=== PATIENT | female | born 1960 | race Caucasian/White ===

== ENCOUNTER 2017-02-01 10:37 | Emergency (ER) | payer OTHER ==
--- NOTE | 2017-02-01 11:00 | ERNOTE ---
Chest Pain/Cardiac HPI Date of Service: 02/01/17 Chief Complaint: Chest Pain Time Seen by Provider: 02/01/17 10:58 Source: patient Exam Limitations: no limitations Immunizations: IMMUNIZATION HX Immunizations Up to Date Yes Allergies/Adverse Reactions: Allergies promethazine HCl [From Phenergan] Allergy (Intermediate, Verified 02/01/17 10:46 ) Hives morphine Allergy (Mild, Verified 02/01/17 10:46) Itching topiramate [From Topamax] Adverse Reaction (Intermediate, Verified 02/01/17 10: 46) Other acetaminophen [From Darvocet-N 100] Adverse Reaction (Mild, Verified 02/01/17 10 :46) Nausea Penicillins Adverse Reaction (Mild, Verified 02/01/17 10:46) Nausea propoxyphene napsylate [From Darvocet-N 100] Adverse Reaction (Mild, Verified 10:46) Nausea Home Medications: HOME MEDICATIONS Albuterol Sulfate [Albuterol Sulfate 2.5 MG/0.5ML] 2.5 mg IH Q6H PRN 04/01/15 [ Last Taken Unknown] Albuterol Sulfate [Proair Respiclick] 90 mcg IH Q4H PRN 04/01/15 [Last Taken Unknown] Atorvastatin Calcium [Lipitor] 40 mg PO HS 04/01/15 [Last Taken Unknown] Duloxetine HCl [Cymbalta] 60 mg PO DAILY 04/01/15 [Last Taken Unknown] Estrogens, Conjugated [Premarin Cream] 1 appl VG 2XW 04/01/15 [Last Taken Unknown] Fluticasone Propionate [Flonase] 1 spray NS BID PRN 04/01/15 [Last Taken Unknown ] Montelukast Sodium [Singulair] 10 mg PO HS 04/01/15 [Last Taken Unknown] Valsartan [Diovan] 160 mg PO DAILY 04/01/15 [Last Taken Unknown] glipiZIDE [Glucotrol Xl] 5 mg PO DAILY 04/01/15 [Last Taken Unknown] metFORMIN HCL [Glucophage] 1,000 mg PO BID 04/01/15 [Last Taken Unknown] Narrative: PT ENTERS C/O RIGHT SIDED LOER LATERAL CHEST PAIN ACROSS TO HER BACK STARTING ABOUT 0900 WHILE AT HOME EATING. NO SOB , BUT SAYS SHE HAD SOME SWEATING. SHE SAYS SINCE THEN SH HAS ONLY HAD TWINGES BELOW HER RIGHT BREAST. SHE DIENIES HXOF CHEST PAIN OR CAD BUT DOES HAVE HTN AND HLD AND OBESITY. IN 05/2016 SHE WAS SEEN HERE WITH Wanda AND CT HERE WAS READ ACUTE CVA BUT SHE WAS SEEN N [place] , HAD AN MRI THAT DID NOT SHOW ANYTHING ABNORMAL. SHE HAS HAD PT SINCE THEN FOR C/O BACK PAINS. SHE ALSO TOLD THE NURSE SHE WAS THINKING SHE IS HAVING PVC'S. Timing: intermittent, gone now Review of Systems - Review of Systems Constitutional: Present: See HPI EYE: Present: no symptoms reported ENT: Present: no symptoms reported Respiratory: Present: no symptoms reported Cardiology: Present: See HPI, chest pain, palpitations Gastrointestinal/Abdominal: Present: no symptoms reported Genitourinary: Present: no symptoms reported Musculoskeletal: Present: no symptoms reported Skin: Present: no symptoms reported Neurological: Present: no symptoms reported Endocrine: Present: no symptoms reported Hematologic/Lymphatic: Present: no symptoms reported Psych: Present: no symptoms reported All Other Systems: All systems neg except as marked - Patient's Past Medical History Patient History - Medical: Anemia, Arthritis, Diabetes Type 2, Depression, Fibromyalgia, GERD, Migraines, Osteoarthritis, Renal Disease, UTI'S, Other Patient History - Cardiac/Respiratory: Asthma, Hypertension, Hyperlipidemia, Pneumonia, Other Patient History - Surgical Procedures: D & C, Hysterectomy, T & A, Other Patient History - Other: None - Social History Living Situations: home Abuse History: No History of abuse Psych History: Hx of Anxiety, Hx of Depression, Current tx/ever been on anti- depressants or anti-anxiety meds Does anyone smoke in the home?: No Smoking Status: Current every day smoker Alcohol Use: occasionally Drug Use: other - Immunizations Immunizations Up to Date: Yes Physical Exam - Physical Exam General Appearance: Present: wd/wn, alert, anxious - NERVOUS ACTING OBESE LADY , WARM AND DRY WITH VSS.( MILD HTN) , attentive for age Respiratory: Present: no respiratory distress, normal breath sounds, no accessory muscle use, chest nontender, lungs clear Cardiovascular/Chest: Present: regular rate, rhythm, no murmur, normal peripheral pulses Peripheral Pulses: N=norm/S=strong/W=weak/B=bound/A=absent: Radial (L): Normal, Femoral (R): Normal Gastrointestinal/Abdominal: Present: normal bowel sounds, nontender, soft Back Exam: Present: normal inspection Extremity Exam: Present: normal inspection, no edema Neurological Exam: Present: alert, oriented Skin Exam: Present: normal color ED Progress - Results and Orders Patient's Lab Results:: I have reviewed the patient's lab results. Results and Orders: ALL LABS NORMAL . NEG D DIMER AND TROP AT 1055. REPEAT 4 HR. TROPONIN ALSO = > 0.017. HER URINE DOES SHOW SMALL BLOOD. WITH NO BACTERIA OR WBC. - Vital Signs Patient's Vital Signs:: I have reviewed the patient's vital signs. Vital Signs: Vital Signs 02/01/17 10:43 Temperature 36.8 C Pulse Rate 82 Respiratory 18 Rate Blood Pressure 179/89 O2 Sat by Pulse 94 Oximetry - EKG EKG: NSR EKG read: Interp. by me - X-Ray X-Ray #1 X-Ray: chest Interpretation: Interp. by me - Progress/Reassessment Chief Complaint: Chest Pain Departure - Departure Clinical Impression: Chest pain at rest Disposition: Home Follow Up Needed Condition: Good Instructions: Chest Pain Observation Additional Instructions: FOLLOW UP WITH YOUR FAMILY DR TO SEE IF HE WOULD WANT YOU TO UNDERGO FURTHER EVALUATION . WE FOUNND NOTHING OUT OF THE ORDINARY TODAY EXCEPT THE SMALL AMOUNT OF BLOOD IN YOUR URINE THAT I HAD MENTIONED TO YOU. IF THESE SAME TYPE OF PAINS RECUR YOU MAY BENEFIT FORM A GALLBLADDER ULTRASOUND OR HIDA SCAN IF THE ULTRASOUND IS NORMAL. Referrals: Truong Perea MD [Primary Care Provider] -
[2017-02-01 11:10] LABS: Hematocrit 42.8 % (37.0-47.0); Mean Cell Volume 84.8 fl (78-100); Mean Corpuscular Hemoglobin 29.7 pg (27-31); Mean Platelet Volume 8.6 fl (6.0-9.5); Neutrophil # 4.7 K/mm3 (1.3-6.0); Neutrophil % 54.8 % (42-75.0); Platelet Count 317 K/mm3 (150-450); Red Blood Count 5.05 M/mm3 (4.2-5.4); Red Cell Distribution Width 13.3 % (11.5-14.0); White Blood Count 8.6 K/mm3 (4.0-10.5)
[2017-02-01 11:12] LABS: INR 0.96 INR (0.90-1.10); Partial Thrombolplastin Time 28.5 Seconds (24-32)
[2017-02-01] MEDS ORDERED: ASPIRIN 81 MG TAB.CHEW PO ONE (11:15)
[2017-02-01 11:18] LABS: ALT 26 U/L (19-67); AST 11 U/L (0-48); Albumin * 3.8 gm/dl (3.4-5.0); Alkaline Phosphatase * 74 U/L (50-170); Anion Gap 13.1 mmol/L (6.8-13.8); BUN/Creatinine Ratio 15.8 (9.0-21.6); Bilirubin, Total 0.5 mg/dL (0.0-1.1); Blood Urea Nitrogen 9 mg/dL (3-23); Ca. Corrected For Albumin 9.7 mg/dL (8.4-10.2); Calcium * 9.9 mg/dL (7.9-10.9); Carbon Dioxide 25.1 mmol/L (24-32.6); Chloride 106 mmol/L (97-106); Glucose * 141 mg/dL (70-110); Potassium 4.2 mmol/L (3.4-4.6); Sodium 140 mmol/L (132-142); Total Protein 7.2 gm/dL (6.2-8.2); Troponin I Less than 0.017 ng/ml (0.00-0.10)
[2017-02-01 11:19] LABS: Urine Bilirubin Negative (NEGATIVE); Urine Blood 25 /ul (NEGATIVE); Urine Ketone Negative (NEGATIVE); Urine Nitrite Negative (NEGATIVE); Urine Protein Negative (NEGATIVE); Urine Specific Gravity <=1.005 SP.GR. (1.005-1.010); Urine Urobilinogen Normal (NORMAL)
[2017-02-01] MEDS ORDERED: ASPIRIN 81 MG TAB.CHEW ONE (11:21)
--- OUTSIDE RECORDS SUMMARY | 2017-02-01 11:24 | XMS REPORT | Continuity of Care Document ---
:1960 Author Organization [facility] ([facility]) Address [address] [place] [address] Phone [phone] Care Team Providers Name Role Phone Truong Perea Primary Care Provider [phone] Source Comments This disclosure is being made pursuant to the Care Everywhere program, applicable federal and state laws, and may not contain all informaitonavailable regarding this patient.[facility] ([facility]) Active Allergies and Adverse Reactions Allergen Noted Date Severity Reactions Comments Morphine 06/14/2013 Pruritus Promethazine Urticaria (Hives) Current Medications Prescription Sig. Disp. Refills Start Date End Date Status valsartan (DIOVAN) Take 1 Tab by mouth 30 Tab 11 01/09/2014 Active 160 mg tablet daily. Indications: HYPERTENSION metFORMIN 500 mg Take 1,000 mg by Active tablet mouth 2 times daily. atorvastatin 20 mg Take 20 mg by mouth Active tablet every evening. montelukast 10 mg Take 1 Tab by mouth 30 Tab 11 07/19/2014 Active tablet daily. Indications: ALLERGIC RHINITIS, ASTHMA PREVENTION albuterol 90 Use 2 Puffs by 1 Inhaler 11 07/19/2014 Active mcg/Actuation inhalation every 6 inhaler hours as needed. Indications: ACUTE ASTHMA ATTACK glipiZIDE PO Take 10 mg by mouth. Active SERTraline 50 mg Take 50 mg by mouth Active tablet daily. estradiol (ESTRACE) Use pea size amount 42.5 g 11 06/17/2016 Active 0.01 % vaginal on finger cream intravaginally twice a week celecoxib 200 mg 04/28/2016 Active capsule DULoxetine 30 mg XR TAKE ONE CAPSULE BY 0 06/18/2016 Active capsule MOUTH DAILY FOR 7 DAYS THEN INCREASE TO TWO CAPSULES DAILY solifenacin Take 1 tablet (5 mg 90 tablet 3 08/12/2016 Active (VESICARE) 5 mg total) by mouth tablet daily. oxybutynin 10 mg CR Take 1 tablet (10 mg 90 tablet 4 08/17/2016 Active tablet total) by mouth daily. Active Problems Problem Noted Date Vertigo 05/24/2016 PPD positive, treated 10/30/2013 Lung nodule 10/30/2013 Overview: Incidental. No change [id number] HTN (hypertension) 10/30/2013 Diabetes mellitus 10/30/2013 Smoker 10/30/2013 Allergic rhinitis, seasonal 10/30/2013 Mixed stress and urge urinary incontinence 06/14/2013 Urinary frequency 06/14/2013 Vaginal atrophy 06/14/2013 Prolapse of vaginal gaxiola 06/14/2013 Chronic constipation 06/14/2013 Fecal incontinence 06/14/2013 Microscopic hematuria 06/14/2013 Most Recent Encounters Date Type Specialty Providers Description 01/19/2017 Office Visit Gynecology Gisele Cruz, Subj: Appointment MD Scheduled 01/06/2017 Office Visit Obg Urogynecology John Putnam MD Subj: Upcoming Appt Reminder 12/24/2016 Office Visit Obg Urogynecology John Putnam MD Subj: Appointment Rescheduled 12/23/2016 Lab Requisition Pathology [facility], [facility] Dx: Neoplasm of uncertain behavior of skin 12/17/2016 Office Visit Obg Urogynecology John Putnam MD Chief Comp: Patient Reported Reason For Visit Immunizations Name Dates Previously Given Next Due Influenza, unspecified 06/20/2014 Social History Tobacco Use Types Packs/Day Years Used Date Current Every Day Smoker Cigarettes 1 30 Smokeless Tobacco: Never Used Tobacco Cessation:Counseling Given: Yes Comments:10cig/sday Alcohol Use Drinks/Week oz/Week Comments Yes 1 Glasses of wine Last Filed Vital Signs Vital Sign Reading Time Taken Blood Pressure 122/75 06/30/2016 11:20 AM CDT Pulse 72 06/30/2016 11:20 AM CDT Temperature 37.4 C (99.3 F) 05/24/2016 1:44 AM CDT Respiratory Rate 20 05/24/2016 1:44 AM CDT Height 1.727 m (5' 7.99") 10/14/2015 3:14 PM [employer] Weight 125.2 kg (276 lb 0.3 oz) 06/30/2016 11:20 AM CDT Body Mass Index 41.98 06/30/2016 11:20 AM CDT Oxygen Saturation 92% 05/24/2016 7:35 AM CDT Plan of Care Date Type Specialty Providers Description 03/04/2017 Appointment Obg Urogynecology John Putnam MD Subj: Appointment [address] [place] [address] [phone] (Fax) 04/27/2017 Appointment Gynecology Gisele Cruz MD Subj: Appointment [address] [place] [address] [phone] (Fax) Health Maintenance Due Date Last Done Comments HCV Screening 1960 Hepatitis B Vaccine (1 of 3 - Primary Series) 1960 Tdap Vaccine 1973 DIABETIC: Cholesterol 1980 Diabetic: Hdl 1980 DIABETIC: Hemoglobin A1C 1980 Diabetic: Ldl 1980 DIABETIC: Microalbumin 1980 DIABETIC: Triglycerides 1980 MMR Vaccine 1980 Td Vaccine 1980 Pneumococcal Vaccine (1 of 1 - PPSV23) 1981 Cervical Cancer Screening 1992 Mammogram 2002 Colonoscopy 05/19/2012 DIABETIC: Foot Exam 10/30/2013 DIABETIC: Retinal Eye Exam 10/30/2013 Influenza Vaccine: Seasonal (Season Ended) 2017 06/20/2014 Results from Last 3 Months DERMATOPATHOLOGY EXAM (12/22/2016 3:56 PM) Component Value Range Case Report Surgical Pathology Case: [id number] Authorizing Provider:[facility] Collected: 12/22/2016 03:56 PM Pathologist: Josi Eagle MD Received:12/23/2016 03:56 PM Specimen:Skin, other, specify, L cheek Diagnosis Skin, left cheek, shave biopsy: Verrucous keratosis with atypia, inflamed, consistent with verruca vulgaris. I have personally reviewed this case and edited the report as necessary. Clinical Information Tissue source/site: [id number] cheek. Pertinent clinical history and findings: Thickened papule 5 mm. Clinical differential diagnosis: BCC versus SCC versus seborrheic keratosis. Gross Description A.Received in formalin, in a container labeled Roselyn Flores, date of , and "L cheek", is a 0.4 x 0.4 x 0.3 cm ledesma-white shave biopsy.The specimen is inked, bisected and submitted entirely in A1. AJF/rls Microscopic Description Sections show a skin shave demonstrating a hyperkeratotic verruciform epidermal proliferation generally to a uniform depth featuring exophytic skin projections topped by parakeratotic tiers, alternati ng with valleys of hypergranulosis.Inflammation and lower epidermal atypia are present. Performed by:Alphonso Iglesias DO, R1/rls Specimen Skin - Skin, other, specify
[2017-02-01 11:26] LABS: Urine Appearance Clear; Urine Bacteria None Seen; Urine Color Yellow; Urine WBC None Seen /hpf (0-5)
[2017-02-01 15:14] VITALS: BP 148/74
== END 2017-02-01 15:54 | disposition home or self-care (01) ==
LOC: ER 10:37
DX: R07.89 Other chest pain (principal); Z72.0 Tobacco use; M19.90 Unspecified osteoarthritis, unspecified site; E11.9 Type 2 diabetes mellitus without complications; F32.89 Other specified depressive episodes; M79.7 Fibromyalgia; K21.9 Gastro-esophageal reflux disease without esophagitis; I10 Essential (primary) hypertension; E78.5 Hyperlipidemia, unspecified; N28.9 Disorder of kidney and ureter, unspecified

== ENCOUNTER 2019-04-09 20:23 | Inpatient (IN) ==
[2019-04-09] MEDS ORDERED: KETOROLAC TROMETHAMINE 30 MG/ML VIAL IV ONE (20:58)
[2019-04-09] MEDS ORDERED: ONDANSETRON HCL/PF 2 MG/ML VIAL IV ONE (20:58)
[2019-04-09] MEDS ORDERED: NORMAL SALINE 1,000 ML IV PRN (20:58)
--- NOTE | 2019-04-09 21:03 | ERNOTE ---
Medical Problem HPI - Narrative Date of Service: 04/09/19 - General Chief Complaint: Fever Time Seen by Provider: 04/09/19 20:34 Source: patient, old records - Immun/Allergies/Home Medications Immunizations: IMMUNIZATION HX Immunizations Up to Date Yes History of Influenza Vaccine Yes Hx Pneumococcal Vaccination No Allergies/Adverse Reactions: Allergies cefdinir Allergy (Intermediate, Verified 04/09/19 20:29) RASH promethazine HCl [From Phenergan] Allergy (Intermediate, Verified 04/09/19 20:29) Hives morphine Allergy (Mild, Verified 04/09/19 20:29) Itching topiramate [From Topamax] Adverse Reaction (Intermediate, Verified 04/09/19 20:29) anxiety Penicillins Adverse Reaction (Mild, Verified 04/09/19 20:29) Nausea propoxyphene napsylate [From Darvocet-N 100] Adverse Reaction (Mild, Verified 04/09/19 20:29) Nausea amitriptyline Adverse Reaction (Unknown, Verified 04/09/19 20:29) tachycardia nortriptyline Adverse Reaction (Unknown, Verified 04/09/19 20:29) tachycardia Home Medications: HOME MEDICATIONS albuterol sulfate 2.5 mg/3 mL (0.083 %) solution for nebulization 2.5 mg IH QID PRN 04/07/18 [Last Taken Unknown] ipratropium-albuterol 0.5 mg-3 mg(2.5 mg base)/3 mL nebulization soln 3 ml IH BID PRN ml 04/07/18 [Last Taken Unknown] meclizine 25 mg tablet 25 mg PO DAILY PRN 04/07/18 [Last Taken Unknown] estradiol 0.01% (0.1 mg/gram) vaginal cream 1 g VG ONCE 09/05/18 [Last Taken ] melatonin 10 mg tablet 10 mg PO HS PRN 09/05/18 [Last Taken Unknown] methenamine 120 mg-sod phos 40.8 mg-methylene blue 10 mg-hyosc capsule 1 cap PO ONCE cap 11/29/18 [Last Taken 12/15/18] Blood Sugar Diagnostic [FreeStyle Lite Strips] 0 ea .ROUTE .MEDSUPPLY 12/16/18 [Last Taken 12/15/18] Blood-Glucose Meter [Contour Link] 0 ea .ROUTE .MEDSUPPLY 12/16/18 [Last Taken 12/15/18] albuterol sulfate 90 mcg/actuation breath activated powder inhaler 90 mcg IH Q4H PRN #3 ea 01/02/19 [Last Taken Unknown] amlodipine 5 mg tablet 5 mg PO DAILY #90 tab 01/02/19 [Last Taken Unknown] atorvastatin 40 mg tablet 40 mg PO HS #90 tab 01/02/19 [Last Taken Unknown] duloxetine 60 mg capsule,delayed release 60 mg PO DAILY #90 cap 01/02/19 [Last Taken Unknown] fenofibrate 160 mg tablet 160 mg PO DAILY #90 tab 01/02/19 [Last Taken Unknown] metformin ER 1,000 mg tablet,extended release 24hr 1,000 mg PO DAILY #90 tab 01/02/19 [Last Taken Unknown] mirabegron ER 50 mg tablet,extended release 24 hr 50 mg PO DAILY #90 tab 01/02/19 [Last Taken Unknown] montelukast 10 mg tablet 10 mg PO HS #90 tab 01/02/19 [Last Taken Unknown] sitagliptin 100 mg tablet 100 mg PO DAILY #90 tab 01/02/19 [Last Taken Unknown] valsartan 80 mg tablet 80 mg PO DAILY #90 tab 01/02/19 [Last Taken Unknown] ropinirole 1 mg tablet 1 mg PO HS #30 tab 01/26/19 [Last Taken Unknown] insulin syringes (disposable) 1 mL See Dose Instructions .ROUTE .MEDSUPPLY #100 ea 03/07/19 [Last Taken Unknown] Nitrofurantoin Macrocrystal [Nitrofurantoin] 100 mg PO BID #14 cap 04/08/19 [Last Taken Unknown] Ondansetron [Zofran Odt] 8 mg PO Q8H PRN #12 tab 04/08/19 [Last Taken Unknown] Fluticasone Propionate [Flonase Allergy Relief] 2 spray INTRANASAL DAILY PRN 04/09/19 [Last Taken Unknown] Insulin Glargine,Hum.rec.anlog [Lantus U-100 Insulin] 14 unit SUBCUT HS 04/09/19 [Last Taken Unknown] - History of Present History Narrative: This is a 58-year-old female who comes to the emergency department by ambulance for the second time in 2 days. 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 The patient suffered a needlestick on March 10. The source patient was hepatitis C+. They were not positive for hepatitis B or HIV. Patient's routine titers were done and she was found to not be hep B immune. She has been placed back on the full regime of the hepatitis B treatment. The patient has had intermittent fevers for the last several weeks. They have gotten up to 104. The patient was put on antibiotics for sinus infection a few days ago. She had an allergic reaction and was changed over to Levaquin. She has been on that since. The patient reports that she has been having clear nasal discharge, headache, myalgias. She denies having any urinary symptoms. She has not had much bowel movement in the last couple of days. Her urine is been very dark. The patient has had a bit more coughing in the last 48 hours. She reports being slightly short of breath. She denies chest pain but says that her ribs hurt inferior costal margin especially on the right. Patient has no neck stiffness. She does have general aching throughout her neck and head. She has no decreased hearing. No sore throat. She says that now she has a little bit of sinus tenderness especially on the right maxillary. The patient tried to get a nap today when she woke up she was having Reiger's. Temperature was over 103. This is despite being on the Levaquin. He has had no bump in her liver enzymes that she is aware of. Review of Systems - Review of Systems Constitutional: Present: recent illness, fever, chills, weakness, fatigue, malaise EYE: Present: no symptoms reported ENT: Present: other - Sinus pressure, clear rhinorrhea Respiratory: Present: shortness of breath, cough. Absent: wheezing Cardiology: Present: no symptoms reported. Absent: chest pain, palpitations, syncope Gastrointestinal/Abdominal: Present: nausea, constipation, eating less. Absent: vomiting, diarrhea, abdominal pain, drinking less Genitourinary: Present: no symptoms reported, other - Urine was slightly dark today Musculoskeletal: Present: other - Patient has diffuse pain throughout. Does have fibromyalgia. All muscles and joints are hurting. Skin: Present: no symptoms reported Neurological: Present: headache Endocrine: Present: no symptoms reported Hematologic/Lymphatic: Present: no symptoms reported Psych: Present: no symptoms reported All Other Systems: All systems neg except as marked Medical History (Updated 04/09/19 @ 22:05 by Hai Sultana MD) Constipation by delayed colonic transit (Acute) Diabetes mellitus type 2 in obese (Chronic) Type II diabetes mellitus (Chronic) Knee pain, chronic (Chronic) Fistula, vagina (Chronic) Fistula (Acute) Morbid obesity (Chronic) Urinary bladder incontinence (Chronic) Degenerative joint disease (DJD) of lumbar spine (Chronic) Facet arthritis of lumbar region (Chronic) Anemia Asthma Onset Date: ~05/03/07 reactive Back pain Chickenpox Current tobacco use 1/2 ppd Diabetes mellitus Onset Date: ~2006 Fibromyalgia Onset Date: ~11/1997 GERD (gastroesophageal reflux disease) Hyperlipidemia Onset Date: ~2004 Hypertension Onset Date: ~2007 Lives with spouse Lung nodule Onset Date: ~10/09/13 Right lower lobe Migraine Obesity Osteoarthritis PPD positive Onset Date: ~1990 Pneumonia Onset Date: ~08/1997 Seldom use of alcohol Sinusitis Sleep apnea p/t reports she had surgery and does not use CPAP anymore Wears glasses Mononucleosis Onset Date: ~1968 hospitalized Surgical History: Surgical History (Updated 12/16/18 @ 10:55 by Jovita Ni RN) History of tonsillectomy and adenoidectomy (Resolved) Onset Date: ~12/20/03 Dr. Yuen H/O: hysterectomy (Resolved) Onset Date: ~05/16/07 Dr. Canales-menometrorrhagia, endometrial hyperplasia History of laparoscopic cholecystectomy Onset Date: 04/26/18 [place] Erosion of vaginal mesh Onset Date: ~06/25/[address] Canales History of colonoscopy Onset Date: ~04/02/15 w/biopsy. Dr. Regan hyperplastic polyps x3, serrated adenoma. Recheck 5 years History of cystoscopy Onset Date: ~05/16/07 History of dilatation and curettage Onset Date: ~[address] Sheppard, 04/21/2006 Dr. Canales History of esophagogastroduodenoscopy (EGD) Onset Date: 04/26/18 [place]-clotest positive. Mild to moderate reflux esophagitis. History of foot surgery Onset Date: ~07/19/15 Bilateral, Spurs, ganglion cysts, [place] History of nasal septoplasty Onset Date: ~12/20/03 Dr. Yuen History of suburethral sling procedure Onset Date: ~05/16/07 Anterior/posterior repair w/avaulta mesh, Dr. Canales History of uvulopalatopharyngoplasty Onset Date: ~12/20/03 Dr. Yuen Hx of BSO (bilateral salpingo-oophorectomy) Onset Date: ~05/16/07 Dr. Canales-menometrorrhagia, endometrial hyperplasia Family History: Family History (Updated 12/16/18 @ 11:00 by Jovita Ni, LAINA) Father Diabetes Myocardial infarction CVA (cerebral vascular accident) Mother , age 61-breast ca (dx age 50's) Hyperlipemia Breast cancer, Onset Age: 50 Colon polyps Sister Diabetes Hypertension Sister , age 45-overdose Depression severe Brother Hypertension Sister Diabetes Hypertension CVA (cerebral vascular accident) Daughter Breast cancer Social History: (Last Reviewed 04/09/19 @ 20:30 by Yesy Robison RN) Social History: adopted: No foster care: No alf: No Marital status: household members: spouse number of children: 2 current occupational status: employed 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 [employer] Highest education level completed: Associate degree: occupat Service: No Tobacco: Smoking Status: Current every day smoker tobacco type: cigarettes Smoking cigarettes per day: 10.0 Smoking packs per day: 0.5 Years smoked: 43 Smoking pack-years: 21.50 Alcohol: alcohol intake: current alcohol intake frequency: holiday/special occasion Substance Use: substance use type: does not use Dietary Habits: caffeine: Yes Type: carbonated beverages, coffee, tea Personal Safety: victim of physical abuse: No victim of emotional abuse: No Physical Exam - Physical Exam General Appearance: Present: wd/wn, alert, no apparent distress Head Exam: Present: normal inspection, no evidence of injury Eye Exam: Normal inspection: bilateral, PERRL: bilateral, EOMI: bilateral Ears, Nose, Throat: Present: other - Patient has normal tympanic membranes. Normal oropharynx. Membranes are slightly dry. No sinus tenderness Neck: Present: normal inspection, nontender, other - No nuchal rigidity or adenopathy Respiratory: Present: no respiratory distress, other - Patient has some very mild rhonchi at the left base Cardiovascular/Chest: Present: regular rate, rhythm, no murmur Gastrointestinal/Abdominal: Present: normal bowel sounds, nontender, nondistended, soft Back Exam: Present: normal inspection, normal range of motion, no CVA tenderness, no vertebral tenderness Extremity Exam: Present: normal inspection, non-tender, normal range of motion Neurological Exam: Present: alert, oriented, normal mood/affect, no motor/sensory deficits Skin Exam: Present: normal color, warm/dry Lymphatic Exam: Present: no adenopathy Progress - Results and Orders Patient's Lab Results:: I have reviewed the patient's lab results. - Vital Signs Patient's Vital Signs:: I have reviewed the patient's vital signs. Vital Signs: Vital Signs 04/09/19 20:26 Temperature 39.6 C H Pulse Rate 101 H Respiratory Rate 20 Blood Pressure 167/71 H O2 Sat by Pulse Oximetry 93 - X-Ray X-Ray #1 X-Ray: chest Interpretation: Interp. by me X-ray Comments: ? Right middle lobe infiltrate. Essentially unchanged from yesterday - Progress/Reassessment Chief Complaint: Fever Progress:: Improved Plan - Plan Plan: Patient has persistent fever despite being on Levaquin. Hypoxic. Infiltrate. White count is actually down. Meets criteria for sepsis. I am going to talk with the hospitalist doctor about which antibiotics to prescribe. She is been in need to stay in the hospital for a day or 2. I spoke with Dr. Jono Rios. She agrees with vancomycin and Zosyn. Expanding the coverage when the patient has not responded to the Levaquin makes sense CRITICAL CARE TIME: 35 minutes Departure Clinical Impression: Hypoxia Sepsis Qualifiers: Sepsis type: sepsis due to unspecified organism Qualified Code(s): A41.9 - Sepsis, unspecified organism Pneumonia Qualifiers: Pneumonia type: due to unspecified organism Laterality: right Lung location: middle lobe of lung Qualified Code(s): J18.1 - Lobar pneumonia, unspecified organism - Departure Disposition: Still a patient Condition: Stable
[2019-04-09 21:15] LABS: Hematocrit 35.1 % (37.0-47.0); Hemoglobin 11.9 gm/dL (12.5-16.0); Mean Corpuscular Hemoglobin 29.8 pg (27-31); Mean Corpuscular Hgb Conc 33.9 g/dl (32-36); Mean Platelet Volume 8.4 fl (8-12.5); Neutrophil # 1.8 K/mm3 (1.3-6.0); Neutrophil % 83.4 % (42-75.0); Platelet Count 216 K/mm3 (150-450); Red Blood Count 3.99 M/mm3 (4.2-5.4); Red Cell Distribution Width 12.8 % (11.5-14.0); White Blood Count 2.2 K/mm3 (4.0-10.5)
[2019-04-09 21:30] LABS: Albumin * 2.8 gm/dl (3.4-5.0); Anion Gap 13.1 mmol/L (6.8-13.8); BUN/Creatinine Ratio 10.8 (9.0-21.6); Bilirubin, Total 0.5 mg/dL (0.0-1.1); Ca. Corrected For Albumin 10.2 mg/dL (8.4-10.2); Calcium * 9.6 mg/dL (7.9-10.9); Carbon Dioxide 26.2 mmol/L (24-32.6); Potassium 3.3 mmol/L (3.4-4.6); Total Protein 6.1 gm/dL (6.2-8.2)
[2019-04-09] MEDS ORDERED: LEVOFLOXACIN 500 MG TABLET PO ONE (22:10)
[2019-04-09] MEDS ORDERED: VANCOMYCIN HCL 1 GM in DEXTROSE 5 % IN WATER 250 ML IV ONE ×2 (22:10)
[2019-04-09 22:12] LABS: Urine Bilirubin Negative (NEGATIVE); Urine Blood 50 /ul (NEGATIVE); Urine Ketone Negative (NEGATIVE); Urine Nitrite Negative (NEGATIVE); Urine Protein 100 mg/dL (NEGATIVE); Urine Specific Gravity >=1.030 SP.GR. (1.005-1.010); Urine pH 5.5 pH (5.0-7.0)
[2019-04-09 22:25] LABS: Urine Appearance Clear (CLEAR); Urine Bacteria None Seen; Urine Color Yellow; Urine Hyaline Cast TRACE /LPF; Urine RBC 0-5 /hpf (0-5); Urine WBC None Seen /hpf (0-5)
[2019-04-10] MEDS: PIPERACILLIN SODIUM/TAZOBACTAM 3.375 GM in DEXTROSE 5 % IN WATER 100 ML IV SCH ×8 (00:58→22:45)
[2019-04-10] MEDS: IBUPROFEN 600 MG TABLET PO PRN ×3 (00:58→18:56)
[2019-04-10] MEDS ORDERED: FLUTICASONE PROPIONATE 120 SPRAY INHALER NS PRN (09:10)
[2019-04-10] MEDS ORDERED: ALBUTEROL SULFATE/IPRATROPIUM 3 ML NEBU IH PRN (09:10)
[2019-04-10] MEDS ORDERED: MELATONIN 3,000 MCG TABLET PO PRN (09:10)
[2019-04-10] MEDS ORDERED: ALBUTEROL SULFATE 2.5 MG/0.5 ML VIAL.NEB IH PRN ×2 (09:10)
[2019-04-10] MEDS ORDERED: MECLIZINE HCL 25 MG TABLET PO PRN (09:10)
[2019-04-10] MEDS ORDERED: ONDANSETRON 8 MG TAB.RAPDIS PO PRN (09:10)
[2019-04-10] MEDS ORDERED: ACETAMINOPHEN WITH CODEINE 1 EACH TABLET PO PRN (09:18)
[2019-04-10] MEDS: LOSARTAN POTASSIUM 50 MG TABLET PO SCH (10:23)
[2019-04-10] MEDS: amLODIPine BESYLATE 5 MG TABLET PO SCH (10:23)
[2019-04-10] MEDS: ENOXAPARIN SODIUM 40 MG/0.4 ML SYRG SC SCH (10:24)
--- NOTE | 2019-04-10 18:36 | HP ---
Chief Complaint - Chief Complaint Date of Service: 04/10/19 Time of Service: 08:30 Chief Complaint: fever, chills, cough, dysuria, weakness, diaphoresis History of Present Illness: Eboni Flores was seen in my office last with chief complaints of malaise and had episodes of fever and chills to 104 degrees. The nidus of her infection was not clear at the time. She came to the emergency room on Wednesday was evaluated and the nidus of infection was still elusive. She was started on oral antibiotics and sent home. Her condition worsened and she was coming very weak and lightheaded. She represented to the emergency room and was subsequently admitted for pneumonia and sepsis. Her blood cultures have come back growing a gram-negative bacillus. The ID will be completed probably tomorrow. She is on IV Zosyn at this time. She did receive Rocephin in the emergency room. She has been febrile. She has a leukocytosis with a left shift in the differential. The chest x-ray is interpreted by the radiologist stating there is a left lower lobe pneumonia however I cannot see it on my reading of it. Her chest is quiet although she reports having audible wheezes and a minimally productive cough. She is having a lot of pain in her back. She has been aggressively rehydrated but is still not feeling much better today. She is a diabetic but her blood sugars have been in the lower 100s for the most part. Medical History (Updated 04/10/19 @ 00:01 by ) Constipation by delayed colonic transit (Acute) Diabetes mellitus type 2 in obese (Chronic) Type II diabetes mellitus (Chronic) Knee pain, chronic (Chronic) Fistula, vagina (Chronic) Fistula (Acute) Morbid obesity (Chronic) Urinary bladder incontinence (Chronic) Degenerative joint disease (DJD) of lumbar spine (Chronic) Facet arthritis of lumbar region (Chronic) Anemia Asthma Onset Date: ~05/03/07 reactive Back pain Chickenpox Current tobacco use 1/2 ppd Diabetes mellitus Onset Date: ~2006 Fibromyalgia Onset Date: ~11/1997 GERD (gastroesophageal reflux disease) Hyperlipidemia Onset Date: ~2004 Hypertension Onset Date: ~2007 Lives with spouse Lung nodule Onset Date: ~10/09/13 Right lower lobe Migraine Obesity Osteoarthritis PPD positive Onset Date: ~1990 Pneumonia Onset Date: ~08/1997 Seldom use of alcohol Sinusitis Sleep apnea p/t reports she had surgery and does not use CPAP anymore Wears glasses Mononucleosis Onset Date: ~1968 hospitalized Surgical History: Surgical History (Updated 12/16/18 @ 10:55 by Jovita Ni, RN) History of tonsillectomy and adenoidectomy (Resolved) Onset Date: ~12/20/03 Dr. Yuen H/O: hysterectomy (Resolved) Onset Date: ~05/16/07 Dr. Canales-menometrorrhagia, endometrial hyperplasia History of laparoscopic cholecystectomy Onset Date: 04/26/18 [place] Erosion of vaginal mesh Onset Date: ~06/25/[address] Canales History of colonoscopy Onset Date: ~04/02/15 w/biopsy. Dr. Regan hyperplastic polyps x3, serrated adenoma. Recheck 5 years History of cystoscopy Onset Date: ~05/16/07 History of dilatation and curettage Onset Date: ~[address] hSeppard, 04/21/2006 Dr. Canales History of esophagogastroduodenoscopy (EGD) Onset Date: 04/26/18 [place]-clotest positive. Mild to moderate reflux esophagitis. History of foot surgery Onset Date: ~07/19/15 Bilateral, Spurs, ganglion cysts, [place] History of nasal septoplasty Onset Date: ~12/20/03 Dr. Yuen History of suburethral sling procedure Onset Date: ~05/16/07 Anterior/posterior repair w/avaulta mesh, Dr. Canales History of uvulopalatopharyngoplasty Onset Date: ~12/20/03 Dr. Yuen Hx of BSO (bilateral salpingo-oophorectomy) Onset Date: ~05/16/07 Dr. Canales-menometrorrhagia, endometrial hyperplasia Family History: Family History (Updated 12/16/18 @ 11:00 by Jovita Ni, LAINA) Father Diabetes Myocardial infarction CVA (cerebral vascular accident) Mother , age 61-breast ca (dx age 50's) Hyperlipemia Breast cancer, Onset Age: 50 Colon polyps Sister Diabetes Hypertension Sister , age 45-overdose Depression severe Brother Hypertension Sister Diabetes Hypertension CVA (cerebral vascular accident) Daughter Breast cancer Social History: (Last Updated 04/09/19 @ 23:57 by Mel Sellers RN) Social History: adopted: No foster care: No prison: No Marital status: household members: spouse number of children: 2 current occupational status: employed 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 [employer] current occupational exposures/hazards: Yes current occupational exposures/hazards comment: 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 [employer]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 Highest education level completed: Associate degree: occupat Service: No Tobacco: Smoking Status: Current every day smoker tobacco type: cigarettes Smoking cigarettes per day: 10.0 Smoking packs per day: 0.5 Years smoked: 43 Smoking pack-years: 21.50 Alcohol: alcohol intake: current alcohol intake frequency: holiday/special occasion Substance Use: substance use type: does not use Dietary Habits: caffeine: Yes Type: carbonated beverages, coffee, tea Personal Safety: victim of physical abuse: No victim of emotional abuse: No Review Of Systems (GEN) - Review of Systems Generalized/Overall Review: Present: Weakness, Chills, Fever, Malaise, Diaphoresis, Fatigue EENTM: Present: No Symptoms Reported Respiratory: Present: Cough, Wheezing Cardiac: Present: No Symptoms Reported Abdominal: Present: No Symptoms Reported Genitourinary: Present: Dysuria Musculoskeletal: Present: No Symptoms Reported Neurological: Present: Weakness Skin: Present: Other - Diaphoretic and pale Endocrine: Present: No Symptoms Reported Immunizations: IMMUNIZATION HX Immunizations Up to Date Yes History of Influenza Vaccine Yes Hx Pneumococcal Vaccination No Allergies/Adverse Reactions: Allergies Allergy/AdvReac Type Severity Reaction Status Date / Time cefdinir Allergy Intermediate RASH Verified 04/09/19 20:29 promethazine HCl Allergy Intermediate Hives Verified 04/09/19 20:29 [From Phenergan] morphine Allergy Mild Itching Verified 04/09/19 20:29 topiramate [From Topamax] AdvReac Intermediate anxiety Verified 04/09/19 20:29 Penicillins AdvReac Mild Nausea Verified 04/09/19 20:29 propoxyphene napsylate AdvReac Mild Nausea Verified 04/09/19 20:29 [From Darvocet-N 100] amitriptyline AdvReac Unknown tachycardia Verified 04/09/19 20:29 nortriptyline AdvReac Unknown tachycardia Verified 04/09/19 20:29 Home Medications: HOME MEDICATIONS albuterol sulfate 2.5 mg/3 mL (0.083 %) solution for nebulization 2.5 mg IH QID PRN 04/07/18 [Last Taken Unknown] ipratropium-albuterol 0.5 mg-3 mg(2.5 mg base)/3 mL nebulization soln 3 ml IH BID PRN ml 04/07/18 [Last Taken Unknown] meclizine 25 mg tablet 25 mg PO DAILY PRN 04/07/18 [Last Taken Unknown] estradiol 0.01% (0.1 mg/gram) vaginal cream 1 g VG ONCE 09/05/18 [Last Taken 12/11/18] melatonin 10 mg tablet 10 mg PO HS PRN 09/05/18 [Last Taken Unknown] Blood Sugar Diagnostic [FreeStyle Lite Strips] 0 ea .ROUTE .MEDSUPPLY 12/16/18 [Last Taken 12/15/18] Blood-Glucose Meter [Contour Link] 0 ea .ROUTE .MEDSUPPLY 12/16/18 [Last Taken 12/15/18] albuterol sulfate 90 mcg/actuation breath activated powder inhaler 90 mcg IH Q4H PRN #3 ea 01/02/19 [Last Taken Unknown] amlodipine 5 mg tablet 5 mg PO DAILY #90 tab 01/02/19 [Last Taken Unknown] atorvastatin 40 mg tablet 40 mg PO HS #90 tab 01/02/19 [Last Taken Unknown] duloxetine 60 mg capsule,delayed release 60 mg PO DAILY #90 cap 01/02/19 [Last Taken Unknown] fenofibrate 160 mg tablet 160 mg PO DAILY #90 tab 01/02/19 [Last Taken Unknown] metformin ER 1,000 mg tablet,extended release 24hr 1,000 mg PO DAILY #90 tab 01/02/19 [Last Taken Unknown] mirabegron ER 50 mg tablet,extended release 24 hr 50 mg PO DAILY #90 tab 12/19 02/05 [Last Taken Unknown] montelukast 10 mg tablet 10 mg PO HS #90 tab 01/02/19 [Last Taken Unknown] sitagliptin 100 mg tablet 100 mg PO DAILY #90 tab 01/02/19 [Last Taken Unknown] valsartan 80 mg tablet 80 mg PO DAILY #90 tab 01/02/19 [Last Taken Unknown] ropinirole 1 mg tablet 1 mg PO HS #30 tab 01/26/19 [Last Taken Unknown] insulin syringes (disposable) 1 mL See Dose Instructions .ROUTE .MEDSUPPLY #100 ea 03/07/19 [Last Taken Unknown] Nitrofurantoin Macrocrystal [Nitrofurantoin] 100 mg PO BID #14 cap 04/08/19 [Last Taken Unknown] Ondansetron [Zofran Odt] 8 mg PO Q8H PRN #12 tab 04/08/19 [Last Taken Unknown] Fluticasone Propionate [Flonase Allergy Relief] 2 spray INTRANASAL DAILY PRN 04/09/19 [Last Taken Unknown] Insulin Glargine,Hum.rec.anlog [Lantus U-100 Insulin] 14 unit SUBCUT HS 04/09/19 [Last Taken Unknown] Exam - Exam Vital Signs: Vital Signs - Last Taken Temp 36.9 C 04/10/19 14:45 Pulse 74 04/10/19 14:45 Resp 18 04/10/19 14:45 BP 119/75 04/10/19 14:45 Pulse Ox 95 04/10/19 14:45 Constitutional: Present: Alert, Oriented x3, Cooperative, Well developed, Well nourished, Moderate distress, Middle aged ENT Exam: Present: normal ENT inspection, hearing grossly normal, pharynx normal, TMs normal Eye Exam: bilateral eye: normal inspection, PERRL, EOMI Neck: Present: non-tender, full range of motion Back Exam: Present: vertebral tenderness Breasts: Present: Exam deferred Respiratory: Present: chest non-tender, lungs clear, normal breath sounds, no accessory muscle use, No rales, No wheezing. Absent: decreased breath sounds, accessory muscle use, crackles, rales, rhonchi, stridor, wheezing, expiration (prolonged), inspiration Cardiovascular/Chest: Present: normal peripheral pulses, regular rate, rhythm, no chest tenderness, no edema, no gallop, no JVD, no murmur, no rub Peripheral Pulses: carotid (R): 2+, carotid (L): 2+, dorsalis-pedis (R): 2+, dorsalis-pedis (L): 2+, radial (R): 2+, radial (L): 2+ Abdomen: Present: Normal bowel sounds, soft, nontender, no rebound tenderness, no hepatospenomegaly, no masses /Rectal: Present: Exam deferred Extremity: Present: normal range of motion, non-tender, normal inspection, no pedal edema, no calf tenderness, normal capillary refill Skin Exam: Present: diaphoresis, pallor Lymphatic: Present: no adenopathy Neurologic: Present: psychologist II-XII nml as tested, normal cerebellar test Appearance: Present: appropriate appearance, appropriate insight, neat, no memory impairment Eye contact: Present: cooperative, good eye contact, normal speech Thoughts: Present: normal thought pattern, no apparent hallucination Diagnostic Studies: Abnormal Lab Results 04/09/19 04/09/19 04/09/19 Range/Units 21:09 21:09 21:09 WBC 2.2 L D (4.0-10.5) K/mm3 RBC 3.99 L (4.2-5.4) M/mm3 Hgb 11.9 L (12.5-16.0) gm/dL Hct 35.1 L (37.0-47.0) % Immature Gran % (Auto) 1.40 H (0.001-0.429) % Neutrophils % 83.4 H (42-75.0) % Lymphocytes % 11.5 L (20-51) % Lymphocytes # 0.25 L (1.5-3.5) k/mm3 Plasma Sodium 143 H (130-142) mmol/L Potassium 3.3 L (3.4-4.6) mmol/L Random Glucose 154 H (70-110) mg/dL Fasting Glucose (70-110) mg/dL Total Protein 6.1 L (6.2-8.2) gm/dL Albumin 2.8 L (3.4-5.0) gm/dl Procalcitonin 4.30 H (0.05-0.50) ng/mL Urine Protein (NEGATIVE) mg/dL Urine Blood (NEGATIVE) /ul Prot Sulfosalicylic Acd (0) mg/dL Urine Urobilinogen (NORMAL) EU/dl Calcium Oxalate Crystal (NONE) /hpf 04/09/19 04/10/19 Range/Units 21:59 09:40 WBC (4.0-10.5) K/mm3 RBC (4.2-5.4) M/mm3 Hgb (12.5-16.0) gm/dL Hct (37.0-47.0) % Immature Gran % (Auto) (0.001-0.429) % Neutrophils % (42-75.0) % Lymphocytes % (20-51) % Lymphocytes # (1.5-3.5) k/mm3 Plasma Sodium (130-142) mmol/L Potassium (3.4-4.6) mmol/L Random Glucose (70-110) mg/dL Fasting Glucose 202 H (70-110) mg/dL Total Protein (6.2-8.2) gm/dL Albumin (3.4-5.0) gm/dl Procalcitonin (0.05-0.50) ng/mL Urine Protein 100 H (NEGATIVE) mg/dL Urine Blood 50 H (NEGATIVE) /ul Prot Sulfosalicylic Acd 2+ H (0) mg/dL Urine Urobilinogen 2.0 H (NORMAL) EU/dl Calcium Oxalate Crystal Few - 1+ H (NONE) /hpf Microbiology 04/09/19 21:09 Blood Culture - Preliminary Blood Ruling Out Pathogen Laboratory Results WBC 2.2 K/mm3 (4.0-10.5) L D 04/09/19 21:09 RBC 3.99 M/mm3 (4.2-5.4) L 04/09/19 21:09 Hgb 11.9 gm/dL (12.5-16.0) L 04/09/19 21:09 Hct 35.1 % (37.0-47.0) L 04/09/19 21:09 MCV 88.0 fl (78-100) 04/09/19 21:09 MCH 29.8 pg (27-31) 04/09/19 21:09 MCHC 33.9 g/dl (32-36) 04/09/19 21:09 RDW 12.8 % (11.5-14.0) 04/09/19 21:09 Plt Count 216 K/mm3 (150-450) 04/09/19 21:09 MPV 8.4 fl (8-12.5) 04/09/19 21:09 Immature Gran % (Auto) 1.40 % (0.001-0.429) H 04/09/19 21:09 Immature Gran # (Auto) 0.03 K/mm3 (0.000-0.0310) 04/09/19 21:09 83.4 % (42-75.0) H 04/09/19 21:09 11.5 % (20-51) L 04/09/19 21:09 1.4 % (0.0-9) 04/09/19 21:09 1.8 % (0.0-3.0) 04/09/19 21:09 0.5 % (0.0-1.0) 04/09/19 21:09 Nucleated RBC % 0.0 k/mm3 (0-1) 04/09/19 21:09 1.8 K/mm3 (1.3-6.0) 04/09/19 21:09 0.25 k/mm3 (1.5-3.5) L 04/09/19 21:09 0.0 k/mm3 (0.0-1.0) 04/09/19 21:09 0.0 k/mm3 (0.0-0.7) 04/09/19 21:09 Absolute Basophils 0.0 k/mm3 (0.0-0.1) 04/09/19 21:09 Sodium 142 mmol/L (132-142) 04/09/19 21:09 143 mmol/L (130-142) H 04/09/19 21:09 Potassium 3.3 mmol/L (3.4-4.6) L 04/09/19 21:09 Chloride 106 mmol/L (97-106) 04/09/19 21:09 Carbon Dioxide 26.2 mmol/L (24-32.6) 04/09/19 21:09 13.1 mmol/L (6.8-13.8) 04/09/19 21:09 BUN 7 mg/dL (3-23) 04/09/19 21:09 0.65 mg/dL (0.4-1.4) 04/09/19 21:09 Est GFR (Non-Af Amer) 100 mL/min (60-130) 04/09/19 21:09 10.8 (9.0-21.6) 04/09/19 21:09 154 mg/dL (70-110) H 04/09/19 21:09 202 mg/dL (70-110) H 04/10/19 09:40 1.9 mmol/L (0.4-2.0) 04/09/19 21:09 Calcium 9.6 mg/dL (7.9-10.9) 04/09/19 21:09 Calcium Adj for Albumin 10.2 mg/dL (8.4-10.2) 04/09/19 21:09 0.5 mg/dL (0.0-1.1) 04/09/19 21:09 AST 27 U/L (0-48) 04/09/19 21:09 ALT 33 U/L (19-67) 04/09/19 21:09 74 U/L (50-170) 04/09/19 21:09 6.1 gm/dL (6.2-8.2) L 04/09/19 21:09 2.8 gm/dl (3.4-5.0) L 04/09/19 21:09 4.30 ng/mL (0.05-0.50) H 04/09/19 21:09 Yellow 04/09/19 21:59 Clear (CLEAR) 04/09/19 21:59 5.5 pH (5.0-7.0) 04/09/19 21:59 Ur Specific [place] >=1.030 SP.GR. (1.005-1.010) 04/09/19 21:59 100 mg/dL (NEGATIVE) H 04/09/19 21:59 Negative mg/dL (NEGATIVE) 04/09/19 21:59 Negative mg/dL (NEGATIVE) 04/09/19 21:59 50 /ul (NEGATIVE) H 04/09/19 21:59 Negative (NEGATIVE) 04/09/19 21:59 Negative mg/dl (NEGATIVE) 04/09/19 21:59 Prot Sulfosalicylic Acd 2+ mg/dL (0) H 04/09/19 21:59 2.0 EU/dl (NORMAL) H 04/09/19 21:59 Ur Leukocyte Esterase Negative /ul (NEGATIVE) 04/09/19 21:59 0-5 /hpf (0-5) 04/09/19 21:59 None seen /hpf (0-5) 04/09/19 21:59 Ur Epithelial Cells Trace /hpf (0-5) 04/09/19 21:59 Calcium Oxalate Crystal Few - 1+ /hpf (NONE) H 04/09/19 21:59 None seen (NONE) 04/09/19 21:59 Hyaline Casts Trace /LPF (NONE) 04/09/19 21:59 Culture to follow 04/09/19 21:59 Assessment/Plan - Narrative Narrative: 1. Continue to monitor for sepsis resolution. 2. Continue current antibiotic therapy until [employer] finals are available 3. Progress diet and activity as tolerated 4. PT to evaluate to help with the low back pain 5. Repeat lab for tomorrow. - Assessment/Plan (1) Sepsis Problem: Acute Qualifiers: Sepsis type: sepsis due to unspecified organism Qualified Code(s): A41.9 - Sepsis, unspecified organism (2) Pneumonia Problem: Acute Qualifiers: Pneumonia type: due to unspecified organism Laterality: right Lung location: middle lobe of lung Qualified Code(s): J18.1 - Lobar pneumonia, unspecified organism (3) UTI (urinary tract infection) Problem: Acute Qualifiers: Urinary tract infection type: acute cystitis Hematuria presence: without hematuria Qualified Code(s): N30.00 - Acute cystitis without hematuria (4) Type II diabetes mellitus Problem: Chronic Qualifiers: 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
[2019-04-10] MEDS: rOPINIRole HCL 1 MG TABLET PO SCH (21:09)
[2019-04-10] MEDS: MONTELUKAST SODIUM 10 MG TABLET PO SCH (21:10)
[2019-04-10] MEDS: INSULIN GLARGINE,HUM.REC.ANLOG 100 UNITS/ML VIAL SC SCH (21:14)
[2019-04-10] MEDS: ACETAMINOPHEN 500 MG TABLET PO PRN (22:56)
[2019-04-11] MEDS: IBUPROFEN 600 MG TABLET PO PRN ×3 (03:07→21:24)
[2019-04-11 05:33] LABS: Hematocrit 32.6 % (37.0-47.0); Mean Cell Volume 86.5 fl (78-100); Mean Corpuscular Hemoglobin 29.2 pg (27-31); Mean Corpuscular Hgb Conc 33.7 g/dl (32-36); Platelet Count 243 K/mm3 (150-450); Red Blood Count 3.77 M/mm3 (4.2-5.4); Red Cell Distribution Width 12.8 % (11.5-14.0); White Blood Count 7.3 K/mm3 (4.0-10.5)
[2019-04-11 05:39] LABS: Total Cells Counted 100
[2019-04-11 05:46] LABS: Atypical (Reactive) Lymph 5 % (0-2); Band 4 % (0-2.0); Dohle Bodies 1+; Eosinophil 2 % (0-3); Immature Granulocyte 4 (0-1); Lymphocyte 21 % (20-51); Monocyte 3 % (0-9); Neutrophil 61 % (42-75); Neutrophil # 4.5 K/mm3 (1.3-6.0); Platelet Estimate Normal (NORMAL); Toxic Granulation 1+
[2019-04-11 05:48] LABS: Albumin * 2.6 gm/dl (3.4-5.0); Anion Gap 12.6 mmol/L (6.8-13.8); BUN/Creatinine Ratio 13.2 (9.0-21.6); Bilirubin, Total 0.5 mg/dL (0.0-1.1); Ca. Corrected For Albumin 10.1 mg/dL (8.4-10.2); Calcium * 9.3 mg/dL (7.9-10.9); Carbon Dioxide 25.6 mmol/L (24-32.6); Potassium 3.2 mmol/L (3.4-4.6); Total Protein 5.8 gm/dL (6.2-8.2)
[2019-04-11] MEDS: PIPERACILLIN SODIUM/TAZOBACTAM 3.375 GM in DEXTROSE 5 % IN WATER 100 ML IV SCH ×6 (07:23→23:08)
[2019-04-11] MEDS: ACETAMINOPHEN 500 MG TABLET PO PRN (07:34)
[2019-04-11] MEDS: sitaGLIPtin PHOSPHATE 50 MG TABLET PO SCH (08:44)
[2019-04-11] MEDS: MIRABEGRON 25 MG TAB.PO.ER PO SCH (08:44)
[2019-04-11] MEDS: DULoxetine HCL 30 MG CAPSULE.SA PO SCH (08:44)
[2019-04-11] MEDS: ENOXAPARIN SODIUM 40 MG/0.4 ML SYRG SC SCH (08:46)
--- NOTE | 2019-04-11 12:34 | PN ---
Subjective - Date and Time Seen Date: 04/11/19 Time: 08:00 Subjective Narrative: Chelsi seems to be doing better today. She is having more headache at the headache is bitemporal and occipital in location. She was having some headache before admission and had plan to go see a chiropractor for that. She had a diaphoretic sweat last night that required a bed change in clothing change but has not had any known fever in the past 24 hours. The blood culture yesterday was reported as a gram-negative bacillus and today is reported as a gram- negative padilla. The urine culture from the emergency room has grown out a positive E BSL E. coli. I reviewed the admitting chest x-ray with Dr. Nunez today and he showed me the air bronchograms and thinks that it is a retrocardiac pneumonia albeit subtle. Today Chantal has not had any coughing or complaints of wheezing that she was having yesterday. Auscultation of the chest is completely clear with equal breath sounds and no adventitia. I suspect the positive blood culture is probably from urinary tract. I reviewed our antibiotic management with Maria A today and she thinks we may need to change to meropenem but we will wait until we get final culture and sensitivity results tomorrow since clinically Lucie is much improved. Review of the labs shows that unexplained low white count of 2200 yesterday up to 7300 today with a predominance of neutrophils. Her potassium is slightly low at 3.2. A repeat urinalysis and culture from a catheterization specimen is sterile thus far. I recommended that we can plan on being off work for the next week and perhaps 2 weeks. When she does go back she should probably go back half a day initially until she gets her strength back. She is going to let her employer know. Objective - Review of Systems Generalized/Overall Review: Reports: Weakness, Malaise, Diaphoresis, Fatigue. Denies: Chills, Fever EENTM: Reports: No Symptoms Reported Respiratory: Reports: No Symptoms Reported - Today. Yesterday she was having coughing and wheezing according to her although on auscultation there were no adventitia yesterday either. Cardiac: Reports: No Symptoms Reported Abdominal: Reports: No Symptoms Reported Genitourinary Symptoms: Reports: No Symptoms Reported, Other - She does have grade 2 urinary bladder prolapse. Musculoskeletal Complaints: Reports: No Symptoms Reported Neurological: Reports: No Symptoms Reported Skin: Reports: No Symptoms Reported Endocrine: Reports: No Symptoms Reported - Vitals Vitals: Last Vital Signs Temp 36.9 C 04/11/19 06:30 Pulse 69 04/11/19 06:30 Resp 18 04/11/19 06:30 BP 103/61 04/11/19 06:30 Pulse Ox 93 04/11/19 06:30 - Abnormal Lab Findings Abnormal Lab Findings: Abnormal Lab Results 04/11/19 04/11/19 Range/Units 05:29 05:29 RBC 3.77 L (4.2-5.4) M/mm3 Hgb 11.0 L (12.5-16.0) gm/dL Hct 32.6 L (37.0-47.0) % Band Neuts % (Manual) 4 H (0-2.0) % Immature Granulocytes 4 H (0-1) Atypic/Reactive Lymphs 5 H (0-2) % Sodium 143 H (132-142) mmol/L Plasma Sodium 144 H (130-142) mmol/L Potassium 3.2 L (3.4-4.6) mmol/L Chloride 108 H (97-106) mmol/L Random Glucose 148 H (70-110) mg/dL Total Protein 5.8 L (6.2-8.2) gm/dL Albumin 2.6 L (3.4-5.0) gm/dl - EKG/Xray Findings EKG read: Reviewed by me Interpretation: Reviewed by me, Rossi w/ radiologist - Exam Constitutional: Present: Alert, Oriented x3, Cooperative, Well developed, Well nourished, No distress ENT Exam: Present: normal ENT inspection, hearing grossly normal, pharynx normal, TMs normal Neck: Present: non-tender, full range of motion, supple, normal inspection, trachea midline Breasts: Present: Exam deferred Respiratory: Present: chest non-tender, lungs clear, normal breath sounds Cardiovascular/Chest: Present: normal peripheral pulses, regular rate, rhythm, no chest tenderness, no edema, no gallop, no JVD, no murmur, no rub Abdomen: Present: Normal bowel sounds, soft, nontender, nondistended, no rebound tenderness, no hepatospenomegaly, no masses /Rectal: Present: Exam deferred Extremity: Present: normal range of motion, non-tender, normal inspection, no pedal edema, no calf tenderness, normal capillary refill Skin Exam: Present: normal color, warm/dry, no cyanosis Lymphatic: Present: no adenopathy Neurologic: Present: 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 For some reason RT treatments were never started even though ordered. Her back pain is much better controlled today. She can take Tylenol for her headaches. The absence of fever, nausea, and a negative Kernig's and Brudzinski's signs I feel meningitis is unlikely. I will monitor that however. Repeat lab again tomorrow. Repeat chest x-ray two-view today. - Problems/Diagnosis (1) Sepsis Problem: Acute Qualifiers: Sepsis type: sepsis due to unspecified organism Qualified Code(s): A41.9 - Sepsis, unspecified organism Narrative: Gram-negative bacillus or gram-negative padilla. The nidus of infection is either renal or lung. 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
[2019-04-11] MEDS: LOSARTAN POTASSIUM 50 MG TABLET PO SCH (14:20)
[2019-04-11] MEDS: amLODIPine BESYLATE 5 MG TABLET PO SCH (14:21)
[2019-04-11] MEDS: MONTELUKAST SODIUM 10 MG TABLET PO SCH (21:26)
[2019-04-11] MEDS: rOPINIRole HCL 1 MG TABLET PO SCH (21:26)
[2019-04-11] MEDS: INSULIN GLARGINE,HUM.REC.ANLOG 100 UNITS/ML VIAL SC SCH (21:27)
[2019-04-12] MEDS: ACETAMINOPHEN 500 MG TABLET PO PRN ×2 (03:20→12:41)
[2019-04-12] MEDS: PIPERACILLIN SODIUM/TAZOBACTAM 3.375 GM in DEXTROSE 5 % IN WATER 100 ML IV SCH ×2 (07:10)
[2019-04-12] MEDS: IBUPROFEN 600 MG TABLET PO PRN ×2 (07:16→14:35)
[2019-04-12] MEDS: MIRABEGRON 25 MG TAB.PO.ER PO SCH (08:51)
[2019-04-12] MEDS: DULoxetine HCL 30 MG CAPSULE.SA PO SCH (08:52)
[2019-04-12] MEDS: LOSARTAN POTASSIUM 50 MG TABLET PO SCH (08:52)
[2019-04-12] MEDS: amLODIPine BESYLATE 5 MG TABLET PO SCH (08:52)
[2019-04-12] MEDS: sitaGLIPtin PHOSPHATE 50 MG TABLET PO SCH (08:52)
[2019-04-12] MEDS: ENOXAPARIN SODIUM 40 MG/0.4 ML SYRG SC SCH (08:53)
[2019-04-12] MEDS ORDERED: MEROPENEM 1 GM in NORMAL SALINE 100 ML IV SCH (13:00)
--- NOTE | 2019-04-12 18:05 | DS ---
(1) Sepsis Problem: Acute Qualifiers: Sepsis type: sepsis due to unspecified organism Qualified Code(s): A41.9 - Sepsis, unspecified organism (2) UTI (urinary tract infection) Problem: Acute Qualifiers: Urinary tract infection type: acute cystitis Hematuria presence: without hematuria Qualified Code(s): N30.00 - Acute cystitis without hematuria (3) Pneumonia Problem: Suspected Qualifiers: Pneumonia type: due to unspecified organism Laterality: right Lung location: middle lobe of lung Qualified Code(s): J18.1 - Lobar pneumonia, unspecified organism (4) Type II diabetes mellitus Problem: Chronic Qualifiers: Diabetes mellitus intermission coordinator insulin use: with alf use Diabetes mellitus complication status: without complication Qualified Code(s): E11.9 - Type 2 diabetes mellitus without complications; Z79.4 - FDC (current) use of insulin (5) Morbid obesity Problem: Chronic (6) Back pain Problem: Acute Qualifiers: Back pain location: low back pain Back pain laterality: midline Sciatica presence: without sciatica (7) Bilateral headaches Problem: Acute Description of Stay: Roselyn is a 58-year-old female patient well-known to me who was admitted with sepsis, presumptive pneumonia, and a urinary tract infection ESBL E. coli. She was hypotensive with leukopenia of 2200, elevated lactic acid. She received IV antibiotics and IV fluids and finally started feeling better yesterday and is better again today. She is up and ambulatory. The chest x-ray was interpreted by radiologist as a left lower lobe pneumonia which I found difficult to see. I reviewed it with the radiologist and he pointed out what appears to be some air bronchograms and some obscuring of the blood vessels behind the heart and suspected it was a retrocardiac pneumonia. Eboni thought she was having some wheezing and some productive cough but on auscultation her lungs were were and remained clear since admission. I have heard no wheezing. On the third day she has stopped coughing and has had no further complaints. I believe what she thought was wheezing was a stridor due to mucus in the trachea and larynx area. She initially was febrile to 39.7 degrees with shaking chills. She was having quite a lot of low back pain but not particularly over the kidneys. The pattern however is more consistent with a pyelonephritis than of pneumonia. Blood cultures eventually grew out the same organism is in the urine which is E. coli with ESBL. She was treated with Zosyn initially but after the culture identified E. coli and her blood I have changed to the antibiotic to meropenem. She has had 1 dose of that today and has tolerated it well. She has been afebrile for 48 hours. She is generally feeling better and strong enough that she thinks she can go home. She will need to continue the meropenem daily on an outpatient basis for the next 10 days. I advised her to plan on being off work for the next 2 weeks. Procedures Performed: none Results and Findings: Pending Mircobiology Results 04/09/19 22:34 Blood Blood Culture - Preliminary NO GROWTH AFTER 48 HOURS Lab Pending Results 04/09/19 21:09: WBC 2.2 L D, RBC 3.99 L, Hgb 11.9 L, Hct 35.1 L, MCV 88.0, MCH 29.8, MCHC 33.9, RDW 12.8, Plt Count 216, MPV 8.4, Immature Gran % (Auto) 1.40 H, Immature Gran # (Auto) 0.03, Neutrophils % 83.4 H, Lymphocytes % 11.5 L, Monocytes % 1.4, Eosinophils % 1.8, Basophils % 0.5, Nucleated RBC % 0.0, Neutrophils # 1.8, Lymphocytes # 0.25 L, Monocytes # 0.0, Eosinophils # 0.0, Absolute Basophils 0.0 04/09/19 21:09: Sodium 142, Plasma Sodium 143 H, Potassium 3.3 L, Chloride 106, Carbon Dioxide 26.2, Anion Gap 13.1, BUN 7, Creatinine 0.65, Est GFR (Non-Af Amer) 100, BUN/Creatinine Ratio 10.8, Random Glucose 154 H, Calcium 9.6, Calcium Adj for Albumin 10.2, Total Bilirubin 0.5, AST 27, ALT 33, Alkaline Phosphatase 74, Total Protein 6.1 L, Albumin 2.8 L 04/09/19 21:09: Lactic Acid, Venous 1.9 04/09/19 21:09: Procalcitonin 4.30 H 04/09/19 21:59: Urine Color Yellow, Urine Appearance Clear, Urine pH 5.5, Ur Specific [place] >=1.030, Urine Protein 100 H, Urine Glucose (UA) Negative, Urine Ketones Negative, Urine Blood 50 H, Urine Nitrate Negative, Urine Bilirubin Negative, Prot Sulfosalicylic Acd 2+ H, Urine Urobilinogen 2.0 H, Ur Leukocyte Esterase Negative, Urine RBC 0-5, Urine WBC None seen, Ur Epithelial Cells Trace, Calcium Oxalate Crystal Few - 1+ H, Urine Bacteria None seen, H yaline Casts Trace, Urine Culture Comments Culture to follow 04/10/19 09:40: Fasting Glucose 202 H 04/11/19 05:29: WBC 7.3 D, RBC 3.77 L, Hgb 11.0 L, Hct 32.6 L, MCV 86.5, MCH 29.2, MCHC 33.7, RDW 12.8, Plt Count 243, Immature Gran % (Auto) LABORER MINE, Immature Gran # (Auto) [facility], Neutrophils % (Manual) 61, Band Neuts % (Manual) 4 H, Lymphocytes % [facility], Lymphocytes % (Manual) 21, Monocytes % [facility], Monocytes % (Manual) 3, Eosinophils % [facility], Eosinophils % (Manual) 2, Basophils % [facility], Immature Granulocytes 4 H, Neutrophils # [facility]INE, Neutrophils # (Manual) 4.5, Lymphocytes # [facility], Lymphocytes # (Manual) 1.5, Monocytes # [facility], Monocytes # (Manual) 0.2, Eosinophils # [facility]INE, Eosinophils # (Manual) 0.1, Absolute Basophils [facility], Atypic/Reactive Lymphs 5 H, Toxic Granulation 1+, Toxic Vacuolation 1+, Dohle Bodies 1+, Platelet Estimate Normal 04/11/19 05:29: Sodium 143 H, Plasma Sodium 144 H, Potassium 3.2 L, Chloride 108 H, Carbon Dioxide 25.6, Anion Gap 12.6, BUN 7, Creatinine 0.53, Est GFR (Non-Af Amer) 127 D, BUN/Creatinine Ratio 13.2, Random Glucose 148 H, Calcium 9.3, Calcium Adj for Albumin 10.1, Total Bilirubin 0.5, AST 19, ALT 39, Alkaline Phosphatase 83, Total Protein 5.8 L, Albumin 2.6 L Discharge Location: Home Disposition: Home self-care Condition: Stable Discharge Activity: Activity as tolerated Discharge Diet: Consistent carbs Referrals: Ty Mendez DO [Primary Care Provider] - Additional Patient Instructions (free text): Set up outpatient administration of meropenem at 2 g once daily for 10 days IV piggyback. Complete Home Medications List: Complete Home Medication List: albuterol sulfate 2.5 mg/3 mL (0.083 %) solution for nebulization 2.5 mg IH QID PRN 04/07/18 ipratropium-albuterol 0.5 mg-3 mg(2.5 mg base)/3 mL nebulization soln 3 ml IH BID PRN ml 04/07/18 meclizine 25 mg tablet 25 mg PO DAILY PRN 04/07/18 estradiol 0.01% (0.1 mg/gram) vaginal cream 1 g VG ONCE 09/05/18 melatonin 10 mg tablet 10 mg PO HS PRN 09/05/18 Blood Sugar Diagnostic [Contour Test Strip] 0 ea .ROUTE .MEDSUPPLY 12/16/18 Blood-Glucose Meter [Contour Link] 0 ea .ROUTE .MEDSUPPLY 12/16/18 albuterol sulfate 90 mcg/actuation breath activated powder inhaler 90 mcg IH Q4H PRN #3 ea 01/02/19 amlodipine 5 mg tablet 5 mg PO DAILY #90 tab 01/02/19 atorvastatin 40 mg tablet 40 mg PO HS #90 tab 01/02/19 duloxetine 60 mg capsule,delayed release 60 mg PO DAILY #90 cap 01/02/19 metformin ER 1,000 mg tablet,extended release 24hr 1,000 mg PO DAILY #90 tab 01/02/19 mirabegron ER 50 mg tablet,extended release 24 hr 50 mg PO DAILY #90 tab 01/02/19 montelukast 10 mg tablet 10 mg PO HS #90 tab 01/02/19 sitagliptin 100 mg tablet 100 mg PO DAILY #90 tab 01/02/19 valsartan 80 mg tablet 80 mg PO DAILY #90 tab 01/02/19 ropinirole 1 mg tablet 1 mg PO HS #30 tab 01/26/19 insulin syringes (disposable) 1 mL See Dose Instructions .ROUTE .MEDSUPPLY #100 ea 03/07/19 Ondansetron [Zofran Odt] 8 mg PO Q8H PRN #12 tab 04/08/19 Fluticasone Propionate [Flonase Allergy Relief] 2 spray INTRANASAL DAILY PRN 04/09/19 Insulin Glargine,Hum.rec.anlog [Lantus] 14 unit SUBCUT HS 04/09/19 Acetaminophen [Tylenol] 500 mg PO Q4H PRN tab 04/12/19 Acetaminophen with Codeine [Tylenol-Codeine 300 MG/30 MG] 2 ea PO Q4H PRN #60 tab 04/12/19 Ibuprofen [Motrin] 600 mg PO Q6H PRN #90 tab 04/12/19 Meropenem-0.9% Sodium Chloride [Meropenem-0.9% NaCl 1 Gram/50] 2 gm IV DAILY 10 Days #1 ml 04/12/19 Saccharomyces Boulardii [Florastor] 250 mg PO BID #60 cap 04/12/19
[2019-04-12 18:39] VITALS: BP 140/72
[2019-04-12] MEDS ORDERED: SACCHAROMYCES BOULARDII 250 MG CAPSULE PO SCH (21:00)
[2019-04-16] MEDS ORDERED: ESTRADIOL 42.5 APPL TUBE VG SCH (21:00)
== END 2019-04-12 19:17 | disposition home or self-care (01) | DRG 871 ==
LOC: ER 20:23 → MS 22:12
PROVIDERS: ADMIT Internal Medicine; ATTEND Family Medicine
DX: E11.9 Type 2 diabetes mellitus without complications; M79.7 Fibromyalgia; F17.210 Nicotine dependence, cigarettes, uncomplicated; Z20.5 Contact with and (suspected) exposure to viral hepatitis; Z68.38 Body mass index [BMI] 38.0-38.9, adult; M54.5 Low back pain; A41.51 Sepsis due to Escherichia coli [E. coli]; E66.01 Morbid (severe) obesity due to excess calories; I10 Essential (primary) hypertension; J18.1 Lobar pneumonia, unspecified organism; R51 Headache; Z79.4 Long term (current) use of insulin; N30.00 Acute cystitis without hematuria; E78.5 Hyperlipidemia, unspecified
CPT/HCPCS: 36415; 71020; 71046; 80053; 81001; 82947; 83605; 84145; 85007; 85025; 87040; 87077; 87086; 87186; 96361; 96374; 96375; 97161; 99291; J2405

== ENCOUNTER 2019-09-05 11:23 | Inpatient (IN) ==
--- NOTE | 2019-08-30 07:53 | ANES ---
Anesthesia Pre Procedure Eval HOME MEDICATIONS albuterol sulfate 2.5 mg IH QID PRN 04/07/18 [Last Taken Unknown] ipratropium-albuterol 0.5 mg-3 mg(2.5 mg base)/3 mL nebulization soln 3 ml IH BID PRN ml 04/07/18 [Last Taken Unknown] meclizine 25 mg tablet 25 mg PO DAILY PRN 04/07/18 [Last Taken Unknown] estradiol 1 g VG ONCE 09/05/18 [Last Taken 06/11/19] melatonin 10 mg tablet 10 mg PO HS PRN 09/05/18 [Last Taken 06/18/19] Blood Sugar Diagnostic [Contour Test Strip] 0 ea .ROUTE .MEDSUPPLY 12/16/18 [Last Taken 06/18/19] Blood-Glucose Meter [Contour Link] 0 ea .ROUTE .MEDSUPPLY 12/16/18 [Last Taken 06/18/19] albuterol sulfate 90 mcg/actuation breath activated powder inhaler 90 mcg IH Q4H PRN #3 ea 01/02/19 [Last Taken Unknown] Acetaminophen [Tylenol] 500 mg PO Q4H PRN tab 04/12/19 [Last Taken Unknown] amlodipine 5 mg tablet See Rx Instructions .ROUTE .COMPLEX #90 tab 05/26/19 [Last Taken 06/18/19] atorvastatin 40 mg tablet See Rx Instructions .ROUTE .COMPLEX #90 tab 05/26/19 [Last Taken 06/18/19] montelukast 10 mg tablet See Rx Instructions .ROUTE .COMPLEX #90 tab 05/26/19 [Last Taken 06/18/19] ropinirole 1 mg tablet See Rx Instructions .ROUTE .COMPLEX #90 tab 05/26/19 [Last Taken 06/18/19] sitagliptin 100 mg tablet 100 mg PO DAILY #90 tab 05/26/19 [Last Taken 06/18/19] valsartan 80 mg tablet See Rx Instructions .ROUTE .COMPLEX #90 tab 05/26/19 [Last Taken 06/18/19] methamphetamine 5 mg tablet 5 mg PO BID 05/29/19 [Last Taken 06/18/19] metformin 500 mg tablet,extended release 24hr 1,000 mg PO DAILY #180 tab 06/09/19 [Last Taken 06/18/19] mirabegron 50 mg tablet,extended release 24 hr See Rx Instructions .ROUTE .COMPLEX #90 tab 06/15/19 [Last Taken 06/18/19] Blood Sugar Diagnostic [FreeStyle Test] See Dose Instructions ea .ROUTE .MEDSUPPLY 06/19/19 [Last Taken 06/18/19] Insulin Glargine,Hum.rec.anlog [Lantus] 18 unit SUBCUT HS 06/19/19 [Last Taken 06/18/19] insulin syringes (disposable) 1 mL ea .ROUTE .MEDSUPPLY 06/19/19 [Last Taken 06/18/19] ibuprofen 600 mg tablet 600 mg PO QID PRN #120 tab 06/21/19 [Last Taken Unknown] duloxetine 60 mg capsule,delayed release 60 mg PO BID #60 cap 08/03/19 [Last Taken Unknown] gabapentin 300 mg capsule 600 mg PO QID #240 cap 08/03/19 [Last Taken Unknown] tramadol 50 mg tablet 100 mg PO Q6H #240 tab 08/03/19 [Last Taken Unknown] metaxalone 800 mg tablet 800 mg PO TID PRN tab 08/21/19 [Last Taken Unknown] Allergies/Adverse Reactions: Allergies Allergy/AdvReac Type Severity Reaction Status Date / Time cefdinir Allergy Intermediate RASH Verified 08/29/19 14:57 promethazine HCl Allergy Intermediate Hives Verified 08/29/19 14:57 [From Phenergan] morphine Allergy Mild Itching Verified 08/29/19 14:57 topiramate [From Topamax] AdvReac Intermediate anxiety Verified 08/29/19 14:57 amitriptyline AdvReac Mild tachycardia Verified 08/29/19 14:57 nortriptyline AdvReac Mild tachycardia Verified 08/29/19 14:57 Penicillins AdvReac Mild Nausea Verified 08/29/19 14:57 propoxyphene napsylate AdvReac Mild Nausea Verified 08/29/19 14:57 [From Darvocet-N 100] - Planned Procedure Planned Procedure: Right Total Knee Arthroplasty Medication List Reviewed:: Yes Allergies Verified: Yes Medical History (Last Reviewed 08/30/19 @ 07:51 by Jameel Veras CRNA) Back pain (Acute) Hypertension (Chronic) Degenerative joint disease of knee, right (Chronic) Major depressive disorder (Acute) Empty sella turcica (Chronic) Chronic pain syndrome (Chronic) History of frequent headaches (Chronic) Atrophy of muscle of both lower legs (Chronic) Multiple sclerosis, primary progressive (Chronic) Constipation by delayed colonic transit (Acute) Sepsis (Resolved) Diabetes mellitus type 2 in obese (Chronic) Type II diabetes mellitus (Chronic) Knee pain, chronic (Chronic) Fistula, vagina (Chronic) Fistula (Acute) Morbid obesity (Chronic) Urinary bladder incontinence (Chronic) Degenerative joint disease (DJD) of lumbar spine (Chronic) Facet arthritis of lumbar region (Chronic) Anemia Asthma Onset Date: ~05/03/07 reactive Back pain Chickenpox Current tobacco use 1/2 ppd Diabetes mellitus Onset Date: ~2006 Fibromyalgia Onset Date: ~11/1997 GERD (gastroesophageal reflux disease) Hyperlipidemia Onset Date: ~2004 Hypertension Onset Date: ~2007 Lives with spouse Lung nodule Onset Date: ~10/09/13 Right lower lobe Migraine Obesity Osteoarthritis PPD positive Onset Date: ~1990 Pneumonia Onset Date: ~08/1997 Seldom use of alcohol Sinusitis Sleep apnea p/t reports she had surgery and does not use CPAP anymore Wears glasses Mononucleosis Onset Date: ~1968 hospitalized Surgical History (Last Reviewed 08/30/19 @ 07:51 by Jameel Veras CRNA) History of tonsillectomy and adenoidectomy (Resolved) Onset Date: ~12/20/03 Dr. Yuen H/O: hysterectomy (Resolved) Onset Date: ~05/16/07 Dr. Canales-menometrorrhagia, endometrial hyperplasia History of cystoscopy Onset Date: ~05/2019 History of laparoscopic cholecystectomy Onset Date: 04/26/18 [place] Erosion of vaginal mesh Onset Date: ~06/25/[address] Canales History of colonoscopy Onset Date: ~04/02/15 w/biopsy. Dr. Regan hyperplastic polyps x3, serrated adenoma. Recheck 5 years History of cystoscopy Onset Date: ~05/16/07 History of dilatation and curettage Onset Date: ~[address] Sheppard, 04/21/2006 Dr. Canales History of esophagogastroduodenoscopy (EGD) Onset Date: 04/26/18 [place]-clotest positive. Mild to moderate reflux esophagitis. History of foot surgery Onset Date: ~07/19/15 Bilateral, Spurs, ganglion cysts, [place] History of nasal septoplasty Onset Date: ~12/20/03 Dr. Yuen History of suburethral sling procedure Onset Date: ~05/16/07 Anterior/posterior repair w/avaulta mesh, Dr. Canales History of uvulopalatopharyngoplasty Onset Date: ~12/20/03 Dr. Yuen Hx of BSO (bilateral salpingo-oophorectomy) Onset Date: ~05/16/07 Dr. Canales-menometrorrhagia, endometrial hyperplasia Family History (Last Reviewed 08/30/19 @ 07:51 by Jameel Veras CRNA) Father Diabetes Myocardial infarction CVA (cerebral vascular accident) Mother , age 61-breast ca (dx age 50's) Hyperlipemia Breast cancer, Onset Age: 50 Colon polyps Sister Diabetes Hypertension Sister , age 45-overdose Depression severe Brother Hypertension Sister Diabetes Hypertension CVA (cerebral vascular accident) Daughter Breast cancer - Family Anesthesia History Family History:: no untoward family reactions to anesthesia - Airway/Neck/Teeth Teeth Condition: missing Neck Exam: full range of motion Mallampatti Score: 2 Thyromental (T-M) distance: > 6 cm Mandibulo Hyoid distance: > 3 cm - Respiratory Respiratory History: asthma Sleep Apnea currently treated: No Sleep Apnea by current assessment: No Comments:: hx ariana. no cpap since surgery - Cardiovascular Cardiac History: hypertension, hyperlipidemia Tolerate Activity: Fair - Anesthesia Assessment and Plan ASA Class: PS, III Anesthesia Type Plan: Spinal - rt adductor canal block
[~2019-09-05 11:23] MED LIST: ROPIVACAINE HCL/PF 100 MG, EPINEPHrine 0.2 MG, KETOROLAC TROMETHAMINE 30 MG in NORMAL S... IJ PRN; TRANEXAMIC ACID 1,000 MG in NORMAL SALINE 100 ML IV PRN; ceFAZolin SODIUM 1 GM VIAL IV PRN
[2019-09-05] MEDS: RINGER'S SOLUTION,LACTATED 1,000 ML IV PRN ×2 (12:07→13:30)
[2019-09-05] MEDS ORDERED: ONDANSETRON HCL/PF 2 MG/ML VIAL ONE (12:32)
[2019-09-05] MEDS ORDERED: MIDAZOLAM HCL/PF 5 MG/ML VIAL ONE (12:32)
[2019-09-05] MEDS ORDERED: PROPOFOL VIAL IV ONE ×2 (12:32→15:29)
[2019-09-05] MEDS ORDERED: BUPIVACAINE HCL/EPINEPHRINE 50 ML VIAL ONE (12:32)
[2019-09-05] MEDS ORDERED: ceFAZolin SODIUM 1 GM VIAL ONE ×2 (13:11→13:12)
[2019-09-05] MEDS ORDERED: MAGNESIUM HYDROXIDE 30 ML UDC PO PRN (15:26)
[2019-09-05] MEDS ORDERED: ACETAMINOPHEN 500 MG TABLET PO PRN (15:26)
[2019-09-05] MEDS ORDERED: MAG HYDROX/ALUMINUM HYD/SIMETH 30 ML UDC PO PRN (15:26)
[2019-09-05] MEDS ORDERED: ONDANSETRON HCL/PF 2 MG/ML VIAL IV PRN (15:26)
[2019-09-05] MEDS ORDERED: oxyCODONE HCL/ACETAMINOPHEN 1 TAB TABLET PO PRN (15:26)
[2019-09-05] MEDS ORDERED: NON-FORMULARY 1 DOSE DOSE (Albuterol Sulfate 2.5 MG) IH PRN (15:29)
[2019-09-05] MEDS ORDERED: MELATONIN 3,000 MCG TABLET PO PRN (15:29)
[2019-09-05] MEDS ORDERED: ALBUTEROL SULFATE/IPRATROPIUM 3 ML NEBU IH PRN (15:29)
[2019-09-05] MEDS ORDERED: ALBUTEROL SULFATE 2.5 MG/0.5 ML VIAL.NEB IH PRN (15:29)
--- NOTE | 2019-09-05 16:01 | ANES ---
Anesthesia Procedure Note Procedure Note: ANESTHESIA PROCEDURE NOTE Date of Procedure: [09/05/2019 Time of procedure: 1325. Performed by: JUS Joe CRNA, MSN Director Dance: Mara Montanez RN. Preprocedure diagnosis: Post right total knee arthroplasty pain. Post procedure diagnosis: Same. Procedure: Right adductor Canal Block. Indications: Post right total knee arthroplasty pain relief. Findings: See below. Details of the procedure: The patient was brought to OR #4 and placed in supine position. The patient's right femoral area to the knee was prepped with chlorhexidine and using ultrasound guidance the right femoral artery and nerve was identified and then followed to the level of the adductor canal. Lidocaine 1% was infiltrated to the skin of the intended injection site. Under ultrasound guidance the saphenous nerve was approached with visualization of a 2 inch shielded block needle. Once saphenous nerve was identified with proximity to the needle tip, the saphenous nerve was surrounded with 20 mL bupivacaine 0.5% with 1-200,000 epinephrine. Please see radiology/ultrasound report for details and retained images of the procedure. EBL: 0 Fluids: N/A. Specimen: N/A. Post procedure condition: The patient tolerated the procedure well. No complications were noted. Thank you for this consultation. Kalpesh Chacon CRNA, ARNP, MSN
--- NOTE | 2019-09-05 16:02 | ANES ---
Post Anesthesia Discharge - Transfer of Care Transfer of Care handoff given to nurse: Yes - Discharge from PACU Discharge from PACU when meets criteria: Yes - Back discomfor (chronic)
[2019-09-05] MEDS: HYDROmorphone HCL 1 MG/ML DISP.SYRIN IV PRN ×2 (16:33→18:56)
[2019-09-05] MEDS: NORMAL SALINE 1,000 ML IV PRN (16:36)
--- NOTE | 2019-09-05 16:38 | ANES ---
Post Anesthesia Assessment - Vital Signs Vitals: Last Vital Signs Temp 36.1 C 09/05/19 16:10 Pulse 66 09/05/19 16:10 Resp 16 09/05/19 16:10 BP 136/74 09/05/19 16:10 Pulse Ox 94 09/05/19 16:10 Airway Patency: Normal - Mental Status Level Of Consciousness: Awake, Alert, Appropriate - Pain Level Pain Score: 0 - N/V Assessment Nausea/Vomiting Presence: None Dehydration:: No
[2019-09-05] MEDS: GABAPENTIN 600 MG TABLET PO SCH ×2 (16:40→21:30)
--- NOTE | 2019-09-05 18:18 | OR ---
Operative Report - Dictated Report Narrative: Date: 09/05/2019 Preoperative diagnosis: Right knee degenerative joint disease. Postoperative diagnosis: Right knee degenerative joint disease. Procedure: Right total knee arthroplasty. Surgeon: Dick Mack M.D. Knowledge Management Consultant: Humberto Thakur PA-C provided a set of essential, skilled, educated hands that assisted in positioning, transfer, retraction, manipulation, irrigation, closure of wounds, and placement of dressings all of which could not be provided by the available surgical crew. Anesthesia: Spinal with regional block and local periarticular joint injection. Complications: None Specimens: Bone for disposal. Estimated blood loss: Minimal. Tourniquet time: 67 minutes at 300 millimeters of mercury. Retained implants: Depuy Attune size 6 standard lugged cemented posterior stabilized femoral component. Size 6 rotating bearing cemented tibial platform. 6 by 6 millimeter posterior stabilized cross-linked tibial insert. 38 millimeter medialized patella button. Indications: Rosleyn is a 59-year-old female who has been followed in my clinic for period of time with significant complaints of right knee pain consistent with arthritic changes. They had failed conservative measures including but not limited to activity modification, passage of time, medications, and other conservative measures. Patient wished to proceed with surgical treatment. The risks, benefits, and alternatives were discussed in clinic. The risks of , blood clots, bleeding, infection, nerve/tendon blood vessel/ injury, malposition of components, intraoperative fracture, postoperative limited range of motion, persistent pain, failure of components, and need for additional procedures. Patient wished to proceed consent was obtained after answering all questions. Procedure: After marking the correct extremity on the floor, the patient was taken to the operating room. A timeout was performed. IV antibiotics consisting of 2 g of Ancef were administered prior to the procedure. A regional followed by spinal anesthetic was induced by anesthesia. on the operative table with all bony prominences well-padded. Diaz catheter was placed and a bump was placed under the operative side buttock. SCDs and ALMA hose were utilized on the nonoperative leg. A well-padded tourniquet was applied to the operative thigh. The operative leg was then pre-scrubbed with alcohol prepped and draped in a standard sterile fashion. After exsanguinating the extremity with an Esmarch bandage, the tourniquet was inflated. After marking out the anterior knee for standard incision centered over the patella, the skin was incised and dissected down to the joint retinaculum. The joint retinaculum was marked out as well as the horizontal axis of the patella, and a standard medial parapatellar arthrotomy was then made. The most proximal aspect of the quadriceps tendon and the patella tendon insertion were protected from release. A partial synovectomy was performed as well as a resection of the infrapatellar fat pad. The distal femoral fat pad proximal to the trochlea was also resected using cautery. The soft tissues were elevated off the medial aspect of the proximal tibia using a Varela elevator ensuring that we did not transect the medial collateral ligament. Upon initial evaluation range of motion was approximately 0 degrees to 125 degrees of flexion. There were signs of advanced arthrosis in the lateral and patellofemoral joint spaces. There were large marginal osteophytes which were removed with a rongeur. The knee was hyperflexed and the patella was tucked laterally. Protecting the surrounding soft tissues with Homans, an entry drill was placed down the femoral canal using Whitesides line for guidance into the entry point. The intramedullary femoral alignment padilla was utilized in order to cut the distal femur in 5 of valgus resecting 9 millimeters of bone. Next the distal femur was sized to a size 6 standard. An anterior referencing guide was utilized to place the distal femoral cutting block in 3 of external rotation. This was pinned into place. The rotation was confirmed both visually and based on anatomic landmarks. The 4 in 1 cutting jig of the appropriate size was utilized in order to make all bony cuts. Retractors were utilized in order to protect surrounding soft tissues. This cut did not result in any excessive notching. We then cut the box centered over the distal femur. This allowed for resection of the anterior and posterior cruciate ligaments. I then turned my attention to the preparation of the tibia. Using an extra medullary tibial alignment padilla, 9 millimeters of bone was resected off the lateral articular surface. This was made perpendicular to the mechanical axis of the joint with the alignment padilla centered over the ankle mortise. The alignment padilla was parallel to the mechanical axis, centered over the medial one third of the tibial tubercle, paralleling the anterior surface of the tibia. We then turned our attention to the remaining meniscus and soft tissues. These were removed while protecting the surrounding ligaments and soft tissues. The marginal osteophytes off the anterior, posterior, medial, lateral aspects of the femur and tibia were removed. The tibia was sized out to a size 6. Next the tibia was drilled and punched in an externally rotated position as confirmed with a drop padilla. Next the trial femur and a series of tibial inserts were utilized in order to allow for full extension and maximal flexion. It was found that a 6 millimeter insert gave the best range of motion and stability at multiple flexion points as well as at full extension there was less than 2 mm of gapping both medially and laterally. There is minimal anterior translation with the knee at 90 of flexion and no signs of being able to dislocate the knee. The patella was then prepared. The initial thickness was 23 millimeters. This was reamed down to 13 millimeters parallel to the anterior surface of the patella. It was sized out to a size 38 mm medialized patella button. This was then drilled and trialed. Without any medial restraint the patella tracked appropriately and did not sublux or dislocate. At this point, it was felt these were the appropriate sized implants and all tri als were removed. The standard periarticular joint injection consisting of ropivacaine, Toradol, and epinephrine were injected into the periarticular joint tissues. The bony surfaces were thoroughly irrigated with a pulsatile-suction saline irrigation device. A bone plug from the prior resected anterior chamfer cut was placed into the drill hole at the distal femur. The bony surfaces were then dried in preparation for placement of the implants. The cement was vacuum mixed per the retail cashier associate's instructions. The cement was placed on the dry bony surfaces and posterior aspect of the implants. The implants were impacted into place, removing all extruded cement. At this point anesthesia administered tranexamic acid per protocol intravenously. The knee was placed in extension with axial loading with the trial insert while the cement cured. A dilute 0.35% betadyne-saline solution was used to irrigate the knee and allowed to sit in the knee while the cement cured. Once the cement cured, all remaining extruded cement was removed. The knee was placed through a range of motion with the trial insert to ensure appropriate range of motion and stability. Final range of motion was approximately 0 to 130 degrees. The knee was again thoroughly irrigated with pulsatile saline lavage. The final polyethylene insert was then impacted into place ensuring no retained soft tissues. The remaining periarticular joint injection was injected. The knee was then packed with lap sponges which were soaked with dilute betadyne solution and the tourniquet was let down. Pressure was held for approximately 2 minutes and then hemostasis was obtained using electrocautery to coagulate any bleeding vessels. The knee was then placed over a triangle and the arthrotomy was closed with interrupted #1 Vicryl after thoroughly irrigating the joint. The deep and subcutaneous tissues were closed with interrupted oh and 3-0 Vicryl respectively. Skin was closed with a running subcutaneous 3-0 Monocryl and Prineo dressing. 4 x 4's, ABD, Sof-Rol, and a full leg Piero wrap were applied. All sponge, needle, blade, and instrument counts were correct prior to closing the wounds. Postoperative condition: The patient was awoken and transferred to the postanesthesia care unit in stable condition. Plan is to be admitted to the inpatient medical/surgical floor postoperatively for 24 hours of IV antibiotics, physical therapy, occupational therapy, and medical co-management. Patient will be weightbearing as tolerated with range of motion as tolerated. DVT prophylaxis will be with SCDs, ALMA hose, and pharmacological anticoagulation. Anticipated hospital stay is approximately 2-4 days.
[2019-09-05] MEDS: oxyCODONE HCL/ACETAMINOPHEN 1 TAB TABLET PO PRN (21:28)
[2019-09-05] MEDS: DULoxetine HCL 20 MG CAPSULE.SA PO SCH (21:31)
[2019-09-05] MEDS: rOPINIRole HCL 1 MG TABLET PO SCH (21:31)
[2019-09-05] MEDS: SENNOSIDES/DOCUSATE SODIUM 1 TAB TABLET PO SCH (21:32)
[2019-09-05] MEDS: METHENAMINE MANDELATE 1 GM TABLET PO SCH (21:32)
[2019-09-05] MEDS: MONTELUKAST SODIUM 10 MG TABLET PO SCH (21:33)
[2019-09-05] MEDS: INSULIN GLARGINE,HUM.REC.ANLOG 100 UNITS/ML VIAL SC SCH (21:38)
[2019-09-05] MEDS: ceFAZolin SODIUM 2 GM in DEXTROSE 5 % IN WATER 50 ML IV SCH ×2 (21:42)
[2019-09-06] MEDS: NORMAL SALINE 1,000 ML IV PRN (01:17)
[2019-09-06] MEDS: oxyCODONE HCL/ACETAMINOPHEN 1 TAB TABLET PO PRN ×5 (01:31→23:54)
[2019-09-06] MEDS: ceFAZolin SODIUM 2 GM in DEXTROSE 5 % IN WATER 50 ML IV SCH ×4 (05:23→14:23)
[2019-09-06 06:38] LABS: Hematocrit 37.8 % (37.0-47.0); Hemoglobin 12.8 gm/dL (12.5-16.0); Mean Cell Volume 88.5 fl (78-100); Mean Corpuscular Hgb Conc 33.9 g/dl (32-36); Mean Platelet Volume 9.1 fl (8-12.5); Platelet Count 222 K/mm3 (150-450); Red Blood Count 4.27 M/mm3 (4.2-5.4); Red Cell Distribution Width 13.6 % (11.5-14.0); White Blood Count 7.1 K/mm3 (4.0-10.5)
[2019-09-06 06:49] LABS: BUN/Creatinine Ratio 14.3 (9.0-21.6); Calcium * 8.7 mg/dL (7.9-10.9); Carbon Dioxide 25.9 mmol/L (24-32.6); Estimated Creat Clear 99.8; Potassium 3.9 mmol/L (3.4-4.6)
[2019-09-06] MEDS: DULoxetine HCL 20 MG CAPSULE.SA PO SCH ×3 (08:07→23:04)
[2019-09-06] MEDS: amLODIPine BESYLATE 5 MG TABLET PO SCH (08:07)
[2019-09-06] MEDS: GABAPENTIN 600 MG TABLET PO SCH ×5 (08:07→23:05)
[2019-09-06] MEDS: MIRABEGRON 25 MG TAB.PO.ER PO SCH (08:07)
[2019-09-06] MEDS: LOSARTAN POTASSIUM 50 MG TABLET PO SCH (08:07)
[2019-09-06] MEDS: METHENAMINE MANDELATE 1 GM TABLET PO SCH ×3 (08:08→23:05)
[2019-09-06] MEDS: ROSUVASTATIN CALCIUM 20 MG TABLET PO SCH (08:08)
[2019-09-06] MEDS: sitaGLIPtin PHOSPHATE 50 MG TABLET PO SCH ×2 (08:09→16:25)
[2019-09-06] MEDS: HYDROmorphone HCL 1 MG/ML DISP.SYRIN IV PRN ×3 (09:24→19:07)
--- NOTE | 2019-09-06 12:52 | PN ---
Subjective - Date and Time Seen Date: 09/06/19 Time: 07:50 Subjective Narrative: Patient notes her right knee pain was well controlled with pain medication, however overnight she missed a dose and now is having significant pain again. She notes her pain is worst with ambulation, when she transfers from bed to chair. She notes that her pain is substantially better at rest however she does have a significant bout of chronic posterior knee pain. She notes that she is having significant back pain as well. Note she has not been able to perform physical therapy at this time. She is able to eat a p.o. diet Objective - Vitals Vitals: Last Vital Signs Temp 36.2 C 09/06/19 10:55 Pulse 71 09/06/19 10:55 Resp 18 09/06/19 10:55 BP 122/72 09/06/19 10:55 Pulse Ox 93 09/06/19 10:55 - Abnormal Lab Findings Abnormal Lab Findings: Abnormal Lab Results 09/06/19 Range/Units 06:36 Chloride 107 H (97-106) mmol/L - Exam Constitutional: Present: Alert, Cooperative Respiratory: Present: no respiratory distress Extremity: Present: other - RLE--> bandages clean/dry/intact, sensation intact light touch, distal capillary refill brisk, diffuse tenderness about right knee, 5/5 ankle plantarflexion and dorsiflexion Cauti Physician Documentation - Urinary Catheter Management 2-way Urethral Date of Insertion: 09/05/19 Time of Insertion: 13:50 Date of Removal: 09/06/19 Time of Removal: 08:30 Assessment/Plan Plan Narrative: -59 y/o male postop day 1 status post a right total knee arthroplasty -Weightbearing as tolerated, assistive device PRN -PT/OT progress as tolerated -P.o. diet as tolerated -P.o. pain medication PRN -DVT prophylaxis: Lovenox, SCDs in bed, ALMA juane knee-high -Disposition: Patient has not yet met all physical therapy goals, pain is moderately controlled however she still has had mild flares,, patient is ivana ating a p.o. diet. Will continue to work towards these goals. Once all goals are met patient will be discharged to the appropriate facility or home. We will continue to monitor closely for improvement as well as changes patient status. - Problems/Diagnosis (1) Status post total right knee replacement using cement Problem: Acute
[2019-09-06] MEDS: ENOXAPARIN SODIUM 40 MG/0.4 ML SYRG SC SCH (14:22)
[2019-09-06] MEDS: INSULIN GLARGINE,HUM.REC.ANLOG 100 UNITS/ML VIAL SC SCH ×2 (19:36→23:04)
[2019-09-06] MEDS: SENNOSIDES/DOCUSATE SODIUM 1 TAB TABLET PO SCH ×2 (19:37→23:05)
[2019-09-06] MEDS: rOPINIRole HCL 1 MG TABLET PO SCH ×2 (19:37→23:05)
[2019-09-06] MEDS: MONTELUKAST SODIUM 10 MG TABLET PO SCH ×2 (19:38→23:05)
[2019-09-07] MEDS: oxyCODONE HCL/ACETAMINOPHEN 1 TAB TABLET PO PRN ×3 (04:09→13:22)
[2019-09-07 06:42] LABS: Anion Gap 14.2 mmol/L (6.8-13.8); BUN/Creatinine Ratio 10.9 (9.0-21.6); Calcium * 9.3 mg/dL (7.9-10.9); Carbon Dioxide 23.5 mmol/L (24-32.6); Estimated Creat Clear 136.7; Potassium 3.7 mmol/L (3.4-4.6)
[2019-09-07 06:48] LABS: Hematocrit 37.7 % (37.0-47.0); Hemoglobin 13.1 gm/dL (12.5-16.0); Mean Cell Volume 85.7 fl (78-100); Mean Corpuscular Hemoglobin 29.8 pg (27-31); Mean Corpuscular Hgb Conc 34.7 g/dl (32-36); Mean Platelet Volume 9.4 fl (8-12.5); Platelet Count 187 K/mm3 (150-450); Red Cell Distribution Width 13.3 % (11.5-14.0); White Blood Count 8.7 K/mm3 (4.0-10.5)
[2019-09-07] MEDS: LOSARTAN POTASSIUM 50 MG TABLET PO SCH (09:18)
[2019-09-07] MEDS: sitaGLIPtin PHOSPHATE 50 MG TABLET PO SCH (09:18)
[2019-09-07] MEDS: MIRABEGRON 25 MG TAB.PO.ER PO SCH (09:18)
[2019-09-07] MEDS: ROSUVASTATIN CALCIUM 20 MG TABLET PO SCH (09:19)
[2019-09-07] MEDS: amLODIPine BESYLATE 5 MG TABLET PO SCH (09:19)
[2019-09-07] MEDS: METHENAMINE MANDELATE 1 GM TABLET PO SCH (09:19)
[2019-09-07] MEDS: DULoxetine HCL 20 MG CAPSULE.SA PO SCH (09:19)
[2019-09-07] MEDS: GABAPENTIN 600 MG TABLET PO SCH ×2 (09:51→13:22)
--- NOTE | 2019-09-07 14:49 | DS ---
(1) Status post total right knee replacement using cement Problem: Acute Date of Discharge:: 09/07/19 Hospital Course: -59-year-old female postop day 2 status post right total knee arthroplasty. Patient has had an uncomplicated stay in the hospital. She is tolerating p.o. pain medication, her pain is well controlled, note that she did require IV pain medication initially postoperatively for pain control. This is now well controlled with p.o. medications at this time. Patient is tolerating a p.o. diet. Patient will begin outpatient physical therapy and follow-up at orthopedic outpatient clinic at 2 weeks postoperatively. Exam today reveals right lower extremity incision intact light touch, distal capillary refill brisk, pernio dressing in place, no significant erythema or drainage, diffuse mild tenderness about right knee, 4+/5 flexion extension of the knee. Patient will continue with following recommendations: -59 y/o male postop day 2 status post a right total knee arthroplasty -Weightbearing as tolerated, assistive device PRN -PT/OT progress as tolerated -P.o. diet as tolerated -P.o. pain medication Percocet 5/325 mg take 1-2 tabs every 4 to 6 hours as needed for pain p.o. -DVT prophylaxis: Lovenox until 10 days postop, followed by 325 mg aspirin daily for 6 weeks, ALMA martineze knee-high -Disposition: Patient will be discharged home, begin outpatient physical therapy, follow-up with orthopedic outpatient clinic in 2 weeks postoperatively Procedures Performed: see notes below List Procedures: Status post right total knee arthroplasty Results and Findings: Lab Pending Results 09/06/19 06:36: WBC 7.1, RBC 4.27, Hgb 12.8, Hct 37.8, MCV 88.5, MCH 30.0, MCHC 33.9, RDW 13.6, Plt Count 222, MPV 9.1 09/06/19 06:36: Sodium 140, Plasma Sodium 140, Potassium 3.9, Chloride 107 H, Carbon Dioxide 25.9, Anion Gap 11.0, BUN 9, Creatinine 0.63, Est GFR (Non-Af Amer) 104, BUN/Creatinine Ratio 14.3, Random Glucose 110, Calcium 8.7 09/07/19 06:33: WBC 8.7 D, RBC 4.40, Hgb 13.1, Hct 37.7, MCV 85.7, MCH 29.8, MCHC 34.7, RDW 13.3, Plt Count 187, MPV 9.4 09/07/19 06:33: Sodium 136, Plasma Sodium 137, Potassium 3.7, Chloride 102, Carbon Dioxide 23.5 L, Anion Gap 14.2 H, BUN 5, Creatinine 0.46, Est GFR (Non-Af Amer) 149 H D, BUN/Creatinine Ratio 10.9, Random Glucose 152 H D, Calcium 9.3 Discharge Location: Home Disposition: Home self-care Condition: Good Discharge Activity: Activity as tolerated, Weight bearing - Assistive device PRN Discharge Diet: General/regular food Referrals: Dick Mack MD [Staff Physician] - 09/18/19 1:15 pm Problem Oriented Discharge Instructions to Patient/Family: Total Knee Replacement, Care After, [id number] Print Language (Dutch or Faroese Available): Dutch Additional Patient Instructions (free text): Physical therapy schedule at [facility] on 09/08/19 at 1:30pm. Follow-up with Dr. Mack in the office on 09-18-19 at 1:15pm. Prescriptions (Any new or edited meds): Enoxaparin Sodium [Lovenox] 40 mg SC Q24H #8 disp.syrin Transmission Status: Pending to [place], [place] oxyCODONE HCL/ACETAMINOPHEN [Percocet 5 MG/325 MG] 1 - 2 tab PO Q4H PRN #90 tab PRN Reason: Severe Pain (Pain Scale 7-10) Transmission Status: Sent to [place], [place] Complete Home Medications List: Complete Home Medication List: albuterol sulfate 2.5 mg IH QID PRN 04/07/18 ipratropium-albuterol 0.5 mg-3 mg(2.5 mg base)/3 mL nebulization soln 3 ml IH BID PRN ml 04/07/18 meclizine 25 mg tablet 25 mg PO DAILY PRN 04/07/18 estradiol 1 g VG ONCE 09/05/18 melatonin 10 mg tablet 10 mg PO HS PRN 09/05/18 Blood Sugar Diagnostic [Contour Test Strip] 1 ea .ROUTE .MEDSUPPLY 12/16/18 Blood-Glucose Meter [Contour Link] 1 ea .ROUTE .MEDSUPPLY 12/16/18 albuterol sulfate 90 mcg/actuation breath activated powder inhaler 90 mcg IH Q4H PRN #3 ea 01/02/19 Acetaminophen [Tylenol] 500 mg PO Q4H PRN tab 04/12/19 sitagliptin 100 mg tablet 100 mg PO DAILY #90 tab 05/26/19 metformin 500 mg tablet,extended release 24hr 1,000 mg PO DAILY #180 tab 06/09/19 Blood Sugar Diagnostic [Contour Test Strip] See Dose Instructions ea .ROUTE .MEDSUPPLY 06/19/19 Insulin Glargine,Hum.rec.anlog [Lantus] 18 unit SUBCUT HS 06/19/19 insulin syringes (disposable) 1 mL 1 ea .ROUTE .MEDSUPPLY 06/19/19 ibuprofen 600 mg tablet 600 mg PO QID PRN #120 tab 06/21/19 duloxetine 60 mg capsule,delayed release 60 mg PO BID #60 cap 08/03/19 gabapentin 300 mg capsule 600 mg PO QID #240 cap 08/03/19 tramadol 50 mg tablet 100 mg PO Q6H #240 tab 08/03/19 metaxalone 800 mg tablet 800 mg PO TID PRN tab 08/21/19 Amlodipine Besylate 5 mg PO DAILY 08/30/19 Atorvastatin Calcium 40 mg PO DAILY 08/30/19 Methenamine Hippurate 1 gm PO BID 08/30/19 Mirabegron [Myrbetriq] 50 mg PO DAILY 08/30/19 Montelukast Sodium [Singulair] 10 mg PO DAILY 08/30/19 Valsartan 80 mg PO DAILY 08/30/19 rOPINIRole HCL [Requip] 1 mg PO DAILY 08/30/19 Enoxaparin Sodium [Lovenox] 40 mg SC Q24H #8 disp.syrin 09/07/19 oxyCODONE HCL/ACETAMINOPHEN [Percocet 5 MG/325 MG] 1 - 2 tab PO Q4H PRN #90 tab 09/07/19 Amb Orders for Discharge: PT Evaluation and Treatment* Location: None Selected
[2019-09-07] MEDS: ENOXAPARIN SODIUM 40 MG/0.4 ML SYRG SC SCH (14:52)
[2019-09-07 16:12] VITALS: BP 139/83
== END 2019-09-07 15:48 | disposition home or self-care (01) | DRG 470 ==
LOC: MS 11:23 → EDSTATUS 13:00
PROVIDERS: ADMIT Orthopaedic Surgery; ATTEND Orthopaedic Surgery
DX: E78.2 Mixed hyperlipidemia; M47.26 Other spondylosis with radiculopathy, lumbar region; I10 Essential (primary) hypertension; E66.9 Obesity, unspecified; Z68.38 Body mass index [BMI] 38.0-38.9, adult; E11.69 Type 2 diabetes mellitus with other specified complication; M17.11 Unilateral primary osteoarthritis, right knee
CPT/HCPCS: 36415; 73560; 80048; 85027; 97110; 97116; 97161; 97165; 97530; 97535; J2405